=== PATIENT | male | born 1955 | race Native Hawaiian/Other Pacific Islander ===

== ENCOUNTER → 2017-04-08 | Emergency (ER) | payer SELFPAY | LOC: ED 09:23 | DX: Z53.21 Procedure and treatment not carried out due to patient leaving prior to being seen by health care provider (principal) ==

== ENCOUNTER 2018-06-25 18:12 | Inpatient (IN) | payer OTHER ==
[2018-06-25 20:36] LABS: Bilirubin,Urine NEG (Negative); Blood,Urine MOD (Negative); Color,Urine Yellow (Yellow); Protein,Urine <15 mg/dL mg/dL (Negative); Urobilinogen,Urine < 2.0 mg/dL (<2.0)
[2018-06-25] MEDS ORDERED: NORCO 5/325 PO ONE (22:37)
--- NOTE | 2018-06-25 22:46 | Emergency Department Report ---
HPI - General Chief Complaint: Abdominal Pain Time Seen by Provider: 06/25/18 22:15 - HPI HPI: Room 26 The patient is a 62-year-old male presenting with the chief complaint of left back and left lower quadrant pain. The patient states he has had pain in his left back for approximately one week. The patient also states he has pain in the left groin whenever he coughs for one week. Patient admits to nausea and vomiting but denies diarrhea or fever. Patient complains of shortness of breath only when he coughs for one week. The patient states his cough is nonproductive. The patient came to the ED 2 days ago for the above complaints and had a CT scan of the abdomen and pelvis performed but eloped prior to getting results. Family states the patient also appears off balance at times. Patient gives his pain a score of 6/10 Location: [See above] Duration: [See above] Quality: [See above] Severity: [See above] Modifying factors: [see above] Context: [see above] Mode of transportation: [not driving] ED Past Medical Hx - Past Medical History Hx Hypertension: Yes Hx Diabetes: Yes Additional medical history: high cholesterol - Surgical History Past Surgical History?: No - Family History Family history: no significant - Social History Smoking Status: Never Smoker Substance Use Type: None (denies illicit drug use), Alcohol (occasional) - Medications Home Medications: Home Medications Medication Instructions Recorded Confirmed Last Taken Type Lisinopril [Prinivil] 10 mg PO DAILY #30 tablet 07/08/18 Unknown Rx Simvastatin 40 mg PO QHS #30 tablet 07/08/18 Unknown Rx Warfarin Sodium [Jantoven] 7.5 mg PO 3XW #30 tablet 07/08/18 Unknown Rx Warfarin Sodium [Jantoven] 10 mg PO 4XW #30 tablet 07/08/18 Unknown Rx cefUROXime [Ceftin] 500 mg PO Q12H #14 tablet 07/08/18 Unknown Rx guaiFENesin/CODEINE [Robitussin AC] 5 ml PO Q6HR #1 oral.liqd 07/08/18 Unknown Rx metFORMIN [Glucophage] 1,000 mg PO BID #60 tablet 07/08/18 Unknown Rx oxyCODONE /ACETAMINOPHEN [Percocet 1 tab PO Q6H PRN #30 tablet 07/08/18 Unknown Rx 5/325 mg] ED Review of Systems ROS: Stated complaint: BACK PAIN/HIGH SUGAR STOMACH PAIN Other details as noted in HPI Constitutional: denies: fever Eyes: denies: eye pain ENT: denies: throat pain Respiratory: cough, shortness of breath Cardiovascular: denies: chest pain Endocrine: no symptoms reported Gastrointestinal: abdominal pain, nausea, vomiting. denies: diarrhea Genitourinary: denies: dysuria Musculoskeletal: back pain Neurological: denies: headache Physical Exam - Physical Exam Vital Signs: Vital Signs 06/25/18 19:15 Temperature 98.1 F Pulse Rate 99 H Respiratory 16 Rate Blood Pressure 148/86 O2 Sat by Pulse 97 Oximetry Physical Exam: GENERAL: The patient is well-developed well-nourished male lying on stretcher not appear to be in acute distress. [] HEENT: Normocephalic. Atraumatic. Extraocular motions are intact. Patient has moist mucous membranes. NECK: Supple. Trachea midline CHEST/LUNGS: Clear to auscultation. There is no respiratory distress noted. HEART/CARDIOVASCULAR: Regular. There is no tachycardia. There is no gallop rub or murmur. ABDOMEN: Abdomen is soft, nontender. Patient has normal bowel sounds. There is no abdominal distention. Slight pressure felt in the left inguinal canal with coughing consistent with potential early indirect inguinal hernia. No obvious hernia palpated SKIN: There is no rash. There is no edema. There is no diaphoresis. NEURO: The patient is awake, alert, and oriented. The patient is cooperative. The patient has normal speech MUSCULOSKELETAL: There is no evidence of acute injury. ED Course Vital Signs 06/25/18 19:15 Temperature 98.1 F Pulse Rate 99 H Respiratory 16 Rate Blood Pressure 148/86 O2 Sat by Pulse 97 Oximetry ED Medical Decision Making - Lab Data Result diagrams: 07/06/18 12:09 07/06/18 12:09 Laboratory Tests 06/25/18 06/25/18 06/25/18 19:23 19:45 22:35 WBC 8.5 RBC 5.63 H Hgb 13.8 Hct 41.7 MCV 74 L MCH 25 L MCHC 33 RDW 16.0 H Plt Count 212 Lymph % (Auto) 19.5 [place] % (Auto) 8.3 H Eos % (Auto) 1.2 Baso % (Auto) 0.7 Lymph # 1.7 [place] # 0.7 Eos # 0.1 Baso # 0.1 Seg Neutrophils % 70.3 H Seg Neutrophils # 6.0 D-Dimer Sodium Potassium Chloride Carbon Dioxide Anion Gap BUN Creatinine Estimated GFR BUN/Creatinine Ratio Glucose POC Glucose 113 H Calcium Total Bilirubin AST ALT Alkaline Phosphatase Total Protein Albumin Albumin/Globulin Ratio Lipase Urine Color Yellow Urine Turbidity Clear Urine pH 5.0 Ur Specific [place] 1.019 Urine Protein <15 mg/dl Urine Glucose (UA) Neg Urine Ketones Neg Urine Blood Mod Urine Nitrite Neg Urine Bilirubin Neg Urine Urobilinogen < 2.0 Ur Leukocyte Esterase Neg Urine WBC (Auto) 1.0 Urine RBC (Auto) 2.0 U Epithel Cells (Auto) < 1.0 06/25/18 06/25/18 22:35 22:35 WBC RBC Hgb Hct MCV MCH MCHC RDW Plt Count Lymph % (Auto) [place] % (Auto) Eos % (Auto) Baso % (Auto) Lymph # [place] # Eos # Baso # Seg Neutrophils % Seg Neutrophils # D-Dimer 370.07 H Sodium 141 Potassium 4.0 Chloride 97.9 L Carbon Dioxide 29 Anion Gap 18 BUN 14 Creatinine 1.0 Estimated GFR > 60 BUN/Creatinine Ratio 14 Glucose 149 H POC Glucose Calcium 9.3 Total Bilirubin 0.40 AST 15 ALT 15 Alkaline Phosphatase 81 Total Protein 7.4 Albumin 4.5 Albumin/Globulin Ratio 1.6 Lipase 150 H Urine Color Urine Turbidity Urine pH Ur Specific [place] Urine Protein Urine Glucose (UA) Urine Ketones Urine Blood Urine Nitrite Urine Bilirubin Urine Urobilinogen Ur Leukocyte Esterase Urine WBC (Auto) Urine RBC (Auto) U Epithel Cells (Auto) - Radiology Data Radiology results: report reviewed (CT chest), image reviewed (CT chest) [address] [address] Cat Scan Report Signed Patient: SARA MEDRANO MR#: [id number] : 1955 Acct:[id number] Age/Sex: 62 / M ADM Date: 06/25/18 Loc: ED Attending Dr: Ordering Physician: TINA FLOYD MD Date of Service: 06/26/18 Procedure(s): CT angio chest Accession Number(s): [id number] cc: TINA FLOYD MD FINAL REPORT EXAM: CT ANGIO CHEST HISTORY: shortness of breath, elevated d-dimer TECHNIQUE: High- resolution helical axial images were obtained of the chest during intravenous administration of iodinated contrast. Images are reconstructed in the sagittal and coronal planes. 100 cc of Omnipaque 350 were used for IV contrast agent PRIORS: 04/20/2012 FINDINGS: There is no evidence of pulmonary embolism. The heart and thoracic aorta appear normal. Previous CT showed a right suprahilar irregular consolidation. Now there is an even larger area of masslike consolidation in the right suprahilar right upper lobe with surrounding ground- glass attenuation. It likely represents a mass based on associated occlusion of a pulmonary arterial branch to the right upper lobe and two pulmonary a arteries to the right middle lobe at their origins. The mass is irregular in shape and measures 9.2 cm AP by 5.9 cm transverse. It abuts the SVC without invasion. There is a new pretracheal lymph node that measures 9 mm in short axis dimension. Images through the upper abdomen show new bilateral adrenal masses measuring 1.8 cm on the right and 3.0 cm on the left. The bones are unremarkable. IMPRESSION: 1. No evidence of pulmonary embolism. 2. Right suprahilar mass occludes pulmonary arterial branches to the right upper lobe and right middle lobe and is highly suspicious for malignancy. 3. 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 I gave a verbal report by phone to Dr. Floyd at 1:32 a.m. eastern daylight time. Transcribed By: ANGEL Dictated By: MARY COLE MD Electronically Authenticated By: MARY COLE MD Signed Date/Time: 06/26/18137 DD/ 7 TD/TT: 137 - Medical Decision Making Due to technical difficulties I'm unable to enter my final diagnoses in the allotted text field. Final diagnoses are below: Right lung mass Adrenal masses Shortness of breath Left groin pain - Differential Diagnosis pyelonephritis, PE, inguinal hernia Critical care attestation.: If time is entered above; I have spent that time in minutes in the direct care of this critically ill patient, excluding procedure time. ED Disposition Clinical Impression: Lung mass, Left groin pain, Shortness of breath, Adrenal mass Disposition: OP ADMIT IP TO THIS HOSP Is pt being admited?: Yes Does the pt Need Aspirin: No Condition: Fair Time of Disposition: 01:42 (hospitalist patient (Dr. Christianne Mata))
[2018-06-25 22:55] LABS: Basophils # (Auto) 0.1 K/mm3 (0.0-0.1); Basophils % (Auto) 0.7 % (0.0-1.8); Eosinophils # (Auto) 0.1 K/mm3 (0.0-0.4); Eosinophils % (Auto) 1.2 % (0.0-4.3); Hematocrit 41.7 % (35.5-45.6); Hemoglobin 13.8 gm/dl (11.8-15.2); Lymphocytes # (Auto) 1.7 K/mm3 (1.2-5.4); Lymphocytes % (Auto) 19.5 % (13.4-35.0); Mean Corpuscular HGB Conc 33 % (32-34); Mean Corpuscular Volume 74 fl (84-94); Monocytes # (Auto) 0.7 K/mm3 (0.0-0.8); Monocytes % (Auto) 8.3 % (0.0-7.3); Platelet Count 212 K/mm3 (140-440); Red Blood Count 5.63 M/mm3 (3.65-5.03)
[2018-06-25 23:01] LABS: Mean Corpuscular Hemoglobin 25 pg (28-32)
[2018-06-25 23:13] LABS: Alanine Aminotransferase 15 units/L (7-56); Albumin 4.5 g/dL (3.9-5)
[2018-06-26 00:01] LABS: BUN/Creatinine Ratio 14; Blood Urea Nitrogen 14 mg/dL (9-20); Calcium 9.3 mg/dL (8.4-10.2); Hemolysis Index 0; Lipase 150 units/L (13-60)
--- NOTE | 2018-06-26 01:39 | Cat Scan Report ---
FINAL REPORT EXAM: CT ANGIO CHEST HISTORY: shortness of breath, elevated d-dimer TECHNIQUE: High-resolution helical axial images were obtained of the chest during intravenous administration of iodinated contrast. Images are reconstructed in the sagittal and coronal planes. 100 cc of Omnipaque 350 were used for IV contrast agent PRIORS: 04/20/2012 FINDINGS: There is no evidence of pulmonary embolism. The heart and thoracic aorta appear normal. Previous CT showed a right suprahilar irregular consolidation. Now there is an even larger area of masslike consolidation in the right suprahilar right upper lobe with surrounding ground-glass attenuation. It likely represents a mass based on associated occlusion of a pulmonary arterial branch to the right upper lobe and two pulmonary a arteries to the right middle lobe at their origins. The mass is irregular in shape and measures 9.2 cm AP by 5.9 cm transverse. It abuts the SVC without invasion. There is a new pretracheal lymph node that measures 9 mm in short axis dimension. Images through the upper abdomen show new bilateral adrenal masses measuring 1.8 cm on the right and 3.0 cm on the left. The bones are unremarkable. IMPRESSION: 1. No evidence of pulmonary embolism. 2. Right suprahilar mass occludes pulmonary arterial branches to the right upper lobe and right middle lobe and is highly suspicious for malignancy. 3. 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 I gave a verbal report by phone to Dr. Canela at 1:32 a.m. eastern daylight time.
[2018-06-26] MEDS ORDERED: ZOFRAN IV PRN (02:55)
[2018-06-26] MEDS ORDERED: PERCOCET 5/325 PO PRN (02:55)
[2018-06-26] MEDS ORDERED: SODIUM CHLORIDE FLUSH SYRINGE 10 ML IV PRN (02:55)
[2018-06-26] MEDS ORDERED: TYLENOL PO PRN (02:55)
[2018-06-26] MEDS ORDERED: D50W (25GM) Syringe IV PRN (02:55)
--- NOTE | 2018-06-26 02:59 | History and Physical Report ---
History of Present Illness Date of examination: 06/26/18 History of present illness: 62-year-old man history of diabetes, to emergency room with complaints of abdominal pain located in the left lower quadrant which she described as a pulling sensation that started 2 weeks ago. The pain has been intermittent in nature, unable to fill on the lateral, radiating to the back, can identify exacerbating or relieving factors. He admits to nausea and vomiting, shortness of breath, shortness of breath worse with coughing Review of systems Constitutional: no weight loss, chills, fever Ears, eyes, nose, mouth and throat: no nasal congestion, no nasal discharge, no sinus pressure, no vision change, no red eye. Neck: No neck pain or rigidity. Cardiovascular: no chest pain, palpitations Respiratory: no cough, shortness of breath Gastrointestinal: no hematochezia Genitourinary : no frequency , no hematuria Musculoskeletal: no joint swelling or muscle ache Integumentary: no rash, no pruritis Neurological: no parathesias, no numbness, no focal weakness Endocrine: no cold or heat intolerance, no polyuria or polydipsia Hematologic/Lymphatic: no easy bruising, no easy bleeding, no gland swelling Allergic/Immunologic: no urticaria, no angioedema. PAST MEDICAL HISTORY: Diabetes PAST SURGICAL HISTORY: None SOCIAL HISTORY: No alcohol, no drugs, tobacco FAMILY HISTORY: Hypertension Medications and Allergies Allergies Allergy/AdvReac Type Severity Reaction Status Date / Time No Known Allergies Allergy Verified 06/23/18 10:10 Home Medications Medication Instructions Recorded Confirmed Last Taken Type Lisinopril [Prinivil] 10 mg PO DAILY 06/26/18 06/26/18 Unknown History Simvastatin 40 mg PO QHS 06/26/18 06/26/18 Unknown History Warfarin Sodium [Jantoven] 7.5 mg PO 3XW 06/26/18 06/26/18 Unknown History Warfarin Sodium [Jantoven] 10 mg PO 4XW 06/26/18 06/26/18 Unknown History metFORMIN [Glucophage] 1,000 mg PO BID 06/26/18 06/26/18 Unknown History Exam - Physical Exam Narrative exam: Gen. appearance: Patient lying in bed, no apparent distress HEENT: Normocephalic, atraumatic, pupils equally round and reactive to light, extraocular movement intact, and no sclericterus,. No JVD or thyromegaly or nodule,neck supple, no carotid bruit ,mucous membranes moist, no exudate or erythema Heart: S1, S2, regular rate and rhythm Lungs: Clear bilaterally, breathing comfortable Abdomen: Positive bowel sounds, non-tender, nondistended, no organomegaly Extremity:no edema cyanosis, clubbing Skin: no rash, dry, warm Neuro: Oriented 3, cranial nerves II-12 intact, speech is fluent, motor and sensory intact - Constitutional Vitals: Temp Pulse Resp BP Pulse Ox 98.4 F 91 H 20 118/64 98 06/25/18 23:00 06/25/18 23:00 06/26/18 00:23 06/25/18 23:00 06/26/18 00:23 Results - Labs CBC & Chem 7: 07/03/18 05:56 07/03/18 05:56 Labs: Abnormal lab results 06/25/18 06/25/18 06/25/18 Range/Units 19:23 22:35 22:35 RBC 5.63 H (3.65-5.03) M/mm3 MCV 74 L (84-94) fl MCH 25 L (28-32) pg RDW 16.0 H (13.2-15.2) % [place] % (Auto) 8.3 H (0.0-7.3) % Seg Neutrophils % 70.3 H (40.0-70.0) % D-Dimer (0-234) ng/mlDDU Chloride 97.9 L (98-107) mmol/L Glucose 149 H (75-100) mg/dL POC Glucose 113 H (70-105) Lipase 150 H (13-60) units/L 06/25/18 Range/Units 22:35 RBC (3.65-5.03) M/mm3 MCV (84-94) fl MCH (28-32) pg RDW (13.2-15.2) % [place] % (Auto) (0.0-7.3) % Seg Neutrophils % (40.0-70.0) % D-Dimer 370.07 H (0-234) ng/mlDDU Chloride (98-107) mmol/L Glucose (75-100) mg/dL POC Glucose (70-105) Lipase (13-60) units/L - Imaging and Cardiology CT scan - chest: report reviewed Assessment and Plan Assessment Right hilar mass with mets Abdominal pain Diabetes Plan Admit to medicine Consult oncology, pain medication Check CAT scan of the abdomen Check finger sticks, initiate insulin sliding scale DVT prophylaxis
--- NOTE | 2018-06-26 03:48 | Cat Scan Report ---
FINAL REPORT PROCEDURE: CT ABDOMEN PELVIS WO CON TECHNIQUE: Computerized axial tomography of the abdomen and pelvis was performed without intravenous contrast. This study is performed without intravascular contrast material and its sensitivity for abdominal and pelvic pathology, including neoplasms, inflammation, abscess, free fluid, thrombosis, arterial dissection and infarction, is reduced compared with a contrast enhanced study. HISTORY: Abdominal pain epigastric COMPARISON: 06/23/2018 FINDINGS: Visualized lower thorax: No significant abnormality. Liver: Normal size and attenuation. Spleen: Normal size and attenuation. Gallbladder and biliary system: Normal. Pancreas: Normal. Adrenals: There is a 3 centimeter left adrenal mass similar to the previous examination.. There is a 16 millimeter right adrenal mass unchanged from prior study. Kidneys: There is no hydronephrosis. There are no visible stones.. GI tract: There is no bowel obstruction, colitis or enteritis. There is moderate stool in the colon. The appendix is normal.. Lymph nodes and mesentery: There is mesenteric induration similar to the prior study.. Vasculature: Normal. Bladder: Normal. Reproductive organs: Normal. Peritoneum: There is no ascites or free air, abscess or adenopathy.. Musculoskeletal structures: There is lytic lesion in the L4 vertebral body with focal defect in the superior endplate suggesting pathological fracture. Metastatic lesion versus myeloma suspected. This is unchanged from the prior study.. Other: None. IMPRESSION: There has been no acute change since the prior study..
[2018-06-26 04:30] LABS: Basophils # (Auto) 0.1 K/mm3 (0.0-0.1); Eosinophils # (Auto) 0.1 K/mm3 (0.0-0.4); Eosinophils % (Auto) 1.8 % (0.0-4.3); Hematocrit 38.8 % (35.5-45.6); Hemoglobin 12.9 gm/dl (11.8-15.2); Lymphocytes # (Auto) 2.1 K/mm3 (1.2-5.4); Mean Corpuscular HGB Conc 33 % (32-34); Mean Corpuscular Volume 74 fl (84-94); Monocytes # (Auto) 0.7 K/mm3 (0.0-0.8); Monocytes % (Auto) 8.5 % (0.0-7.3); Platelet Count 190 K/mm3 (140-440); Red Blood Count 5.25 M/mm3 (3.65-5.03); Red Cell Distribution Width 15.9 % (13.2-15.2)
[2018-06-26 04:36] LABS: BUN/Creatinine Ratio 14; Blood Urea Nitrogen 13 mg/dL (9-20); Calcium 8.8 mg/dL (8.4-10.2); Hemolysis Index 2
[2018-06-26 04:37] LABS: Mean Corpuscular Hemoglobin 25 pg (28-32)
--- NOTE | 2018-06-26 08:48 | Hem/Onc Consultation ---
History of Present Illness - Reason for Consult Consult date: 06/26/18 lung and adrenal lesions Requesting physician: DEMETRIO LOONEY - History of Present Illness admitted for 2 weeks h/o left LQ and left flank discomfort pain is better now 62-year-old male presenting with the chief complaint of left back and left lower quadrant pain. The patient states he has had pain in his left back for approximately one week. The patient also states he has pain in the left groin whenever he coughs for one week. h/o nausea in past h/o dry cough The patient came to the ED a few days ago for the above complaints and had a CT scan of the abdomen and pelvis performed but eloped prior to getting results. no chest pain no leg pain no vomiting no headache or fever Past History Past Medical History: diabetes, hypertension, hyperlipidemia Past Surgical History: No surgical history Social history: denies: smoking Family history: no significant family history Medications and Allergies Allergies Allergy/AdvReac Type Severity Reaction Status Date / Time No Known Allergies Allergy Verified 06/23/18 10:10 Home Medications Medication Instructions Recorded Confirmed Last Taken Type Lisinopril [Prinivil] 10 mg PO DAILY 06/26/18 06/26/18 Unknown History Simvastatin 40 mg PO QHS 06/26/18 06/26/18 Unknown History Warfarin Sodium [Jantoven] 7.5 mg PO 3XW 06/26/18 06/26/18 Unknown History Warfarin Sodium [Jantoven] 10 mg PO 4XW 06/26/18 06/26/18 Unknown History metFORMIN [Glucophage] 1,000 mg PO BID 06/26/18 06/26/18 Unknown History Active Meds: Active Medications Acetaminophen (Tylenol) 650 mg PO Q4H PRN PRN Reason: Pain MILD(1-3)/Fever >100.5/HERNANDEZ Dextrose (D50w (25gm) Syringe) 50 ml IV PRN PRN PRN Reason: Hypoglycemia Enoxaparin Sodium (Lovenox) 40 mg SUB-Q QDAY TANA Ondansetron HCl (Zofran) 4 mg IV Q8H PRN PRN Reason: Nausea And Vomiting Oxycodone/Acetaminophen (Percocet 5/325) 1 tab PO Q6H PRN PRN Reason: Pain, Moderate (4-6) Pneumococcal Polyvalent Vaccine (Pneumovax 23) 0.5 ml IM .ONCE ONE Stop: 06/27/18 12:01 Sodium Chloride (Sodium Chloride Flush Syringe 10 Ml) 10 ml IV BID TANA Sodium Chloride (Sodium Chloride Flush Syringe 10 Ml) 10 ml IV PRN PRN PRN Reason: LINE FLUSH Review of Systems Constitutional: weight gain, no fever, no chills Ears, nose, mouth and throat: no epistaxis Cardiovascular: no chest pain Respiratory: cough (non productive) Gastrointestinal: abdominal pain, nausea, no diarrhea Genitourinary Male: flank pain, no hematuria Rectal: no bleeding Integumentary: no rash Neurological: no seizures Hematologic/Lymphatic: no easy bruising Exam - Constitutional Vitals: Last Vital Signs Temp 98.4 F 06/26/18 06:24 Pulse 69 06/26/18 06:24 Resp 20 06/26/18 06:24 BP 141/83 06/26/18 06:24 Pulse Ox 98 06/26/18 06:24 Pain Intensity (0-10): denies any pain General appearance: no acute distress Performance status: 0-fully active - EENT Eyes: PERRL ENT: clear oral mucosa Lymph node exam: negative cervical, negative supraclavicular - Neck Neck: supple - Respiratory Respiratory effort: Positive: normal Respiratory: negative: CTA - Cardiovascular Heart Sounds: Present: S1 & S2 Extremities: No edema - Gastrointestinal General gastrointestinal: Present: soft Rectal Exam: deferred - Genitourinary Male genitourinary: Present: deferred - Integumentary Integumentary: warm - Musculoskeletal Musculoskeletal: strength equal bilaterally - Neurologic Neurologic: moves all extremities Results - Labs lab Results: Laboratory Results - last 24 hr 06/25/18 06/25/18 06/25/18 19:23 19:45 22:35 WBC 8.5 RBC 5.63 H Hgb 13.8 Hct 41.7 MCV 74 L MCH 25 L MCHC 33 RDW 16.0 H Plt Count 212 Lymph % (Auto) 19.5 [place] % (Auto) 8.3 H Eos % (Auto) 1.2 Baso % (Auto) 0.7 Lymph # 1.7 [place] # 0.7 Eos # 0.1 Baso # 0.1 Seg Neutrophils % 70.3 H Seg Neutrophils # 6.0 D-Dimer Sodium Potassium Chloride Carbon Dioxide Anion Gap BUN Creatinine Estimated GFR BUN/Creatinine Ratio Glucose POC Glucose 113 H Calcium Total Bilirubin AST ALT Alkaline Phosphatase Total Protein Albumin Albumin/Globulin Ratio Lipase Urine Color Yellow Urine Turbidity Clear Urine pH 5.0 Ur Specific [place] 1.019 Urine Protein <15 mg/dl Urine Glucose (UA) Neg Urine Ketones Neg Urine Blood Mod Urine Nitrite Neg Urine Bilirubin Neg Urine Urobilinogen < 2.0 Ur Leukocyte Esterase Neg Urine WBC (Auto) 1.0 Urine RBC (Auto) 2.0 U Epithel Cells (Auto) < 1.0 06/25/18 06/25/18 06/26/18 22:35 22:35 04:10 WBC 8.1 RBC 5.25 H Hgb 12.9 Hct 38.8 MCV 74 L MCH 25 L MCHC 33 RDW 15.9 H Plt Count 190 Lymph % (Auto) 26.0 [place] % (Auto) 8.5 H Eos % (Auto) 1.8 Baso % (Auto) 1.0 Lymph # 2.1 [place] # 0.7 Eos # 0.1 Baso # 0.1 Seg Neutrophils % 62.7 Seg Neutrophils # 5.1 D-Dimer 370.07 H Sodium 141 Potassium 4.0 Chloride 97.9 L Carbon Dioxide 29 Anion Gap 18 BUN 14 Creatinine 1.0 Estimated GFR > 60 BUN/Creatinine Ratio 14 Glucose 149 H POC Glucose Calcium 9.3 Total Bilirubin 0.40 AST 15 ALT 15 Alkaline Phosphatase 81 Total Protein 7.4 Albumin 4.5 Albumin/Globulin Ratio 1.6 Lipase 150 H Urine Color Urine Turbidity Urine pH Ur Specific [place] Urine Protein Urine Glucose (UA) Urine Ketones Urine Blood Urine Nitrite Urine Bilirubin Urine Urobilinogen Ur Leukocyte Esterase Urine WBC (Auto) Urine RBC (Auto) U Epithel Cells (Auto) 06/26/18 04:10 WBC RBC Hgb Hct MCV MCH MCHC RDW Plt Count Lymph % (Auto) [place] % (Auto) Eos % (Auto) Baso % (Auto) Lymph # [place] # Eos # Baso # Seg Neutrophils % Seg Neutrophils # D-Dimer Sodium 137 Potassium 3.9 Chloride 99.1 Carbon Dioxide 26 Anion Gap 16 BUN 13 Creatinine 0.9 Estimated GFR > 60 BUN/Creatinine Ratio 14 Glucose 143 H POC Glucose Calcium 8.8 Total Bilirubin AST ALT Alkaline Phosphatase Total Protein Albumin Albumin/Globulin Ratio Lipase Urine Color Urine Turbidity Urine pH Ur Specific [place] Urine Protein Urine Glucose (UA) Urine Ketones Urine Blood Urine Nitrite Urine Bilirubin Urine Urobilinogen Ur Leukocyte Esterase Urine WBC (Auto) Urine RBC (Auto) U Epithel Cells (Auto) Assessment and Plan # rt suprahilar - large mass # b/l adrenal mass d/w pt that this may be neoplastic - look into bx admitted with left abdo/flank pain #HTN. - on meds #DM - on meds
[2018-06-26] MEDS: LOVENOX SUB-Q SCH (09:38)
[2018-06-26] MEDS: SODIUM CHLORIDE FLUSH SYRINGE 10 ML IV SCH ×2 (09:40→21:29)
--- NOTE | 2018-06-26 10:32 | Consultation ---
History of Present Illness - Reason for Consult Consult date: 06/26/18 pulmonary mass, adrenal masses - History of Present Illness Patient with a history of hilar mass with enlargement as well as bilateral adrenal masses suspicious for metastatic lung cancer. The patient initially presented with abdominal pain which has somewhat resolved. Past History Social history: no significant social history Medications and Allergies Allergies Allergy/AdvReac Type Severity Reaction Status Date / Time No Known Allergies Allergy Verified 06/23/18 10:10 Home Medications Medication Instructions Recorded Confirmed Last Taken Type Lisinopril [Prinivil] 10 mg PO DAILY 06/26/18 06/26/18 Unknown History Simvastatin 40 mg PO QHS 06/26/18 06/26/18 Unknown History Warfarin Sodium [Jantoven] 7.5 mg PO 3XW 06/26/18 06/26/18 Unknown History Warfarin Sodium [Jantoven] 10 mg PO 4XW 06/26/18 06/26/18 Unknown History metFORMIN [Glucophage] 1,000 mg PO BID 06/26/18 06/26/18 Unknown History Active Meds: Active Medications Acetaminophen (Tylenol) 650 mg PO Q4H PRN PRN Reason: Pain MILD(1-3)/Fever >100.5/HERNANDEZ Dextrose (D50w (25gm) Syringe) 50 ml IV PRN PRN PRN Reason: Hypoglycemia Enoxaparin Sodium (Lovenox) 40 mg SUB-Q QDAY [facility] Last Admin: 06/26/18 09:38 Dose: 40 mg Ondansetron HCl (Zofran) 4 mg IV Q8H PRN PRN Reason: Nausea And Vomiting Oxycodone/Acetaminophen (Percocet 5/325) 1 tab PO Q6H PRN PRN Reason: Pain, Moderate (4-6) Pneumococcal Polyvalent Vaccine (Pneumovax 23) 0.5 ml IM .ONCE ONE Stop: 06/27/18 12:01 Sodium Chloride (Sodium Chloride Flush Syringe 10 Ml) 10 ml IV BID [facility] Last Admin: 06/26/18 09:40 Dose: 10 ml Sodium Chloride (Sodium Chloride Flush Syringe 10 Ml) 10 ml IV PRN PRN PRN Reason: LINE FLUSH Review of Systems All systems: negative Exam - Constitutional Vitals: Temp Pulse Resp BP Pulse Ox 98.4 F 69 20 141/83 98 06/26/18 06:24 06/26/18 06:24 06/26/18 06:24 06/26/18 06:24 06/26/18 06:24 General appearance: Present: no acute distress - EENT Eyes: Present: PERRL ENT: hearing intact - Neck Neck: Present: supple, normal ROM - Respiratory Respiratory effort: normal - Extremities Extremities: no ischemia - Abdominal General gastrointestinal: Present: deferred Male genitourinary: Present: deferred - Rectal Rectal Exam: deferred - Psychiatric Psychiatric: appropriate mood/affect, cooperative - Neurologic Neurologic: no focal deficits Results - Labs CBC & Chem 7: 06/26/18 04:10 06/26/18 04:10 Labs: Abnormal lab results 06/25/18 06/25/18 06/25/18 Range/Units 19:23 22:35 22:35 RBC 5.63 H (3.65-5.03) M/mm3 MCV 74 L (84-94) fl MCH 25 L (28-32) pg RDW 16.0 H (13.2-15.2) % [place] % (Auto) 8.3 H (0.0-7.3) % Seg Neutrophils % 70.3 H (40.0-70.0) % D-Dimer (0-234) ng/mlDDU Chloride 97.9 L (98-107) mmol/L Glucose 149 H (75-100) mg/dL POC Glucose 113 H (70-105) Lipase 150 H (13-60) units/L 06/25/18 06/26/18 06/26/18 Range/Units 22:35 04:10 04:10 RBC 5.25 H (3.65-5.03) M/mm3 MCV 74 L (84-94) fl MCH 25 L (28-32) pg RDW 15.9 H (13.2-15.2) % [place] % (Auto) 8.5 H (0.0-7.3) % Seg Neutrophils % (40.0-70.0) % D-Dimer 370.07 H (0-234) ng/mlDDU Chloride (98-107) mmol/L Glucose 143 H (75-100) mg/dL POC Glucose (70-105) Lipase (13-60) units/L - Imaging and Cardiology CT scan - abdomen: report reviewed, image reviewed CT scan - chest: report reviewed, image reviewed Assessment and Plan Given the fact that the patient has both hilar and adrenal masses, we'll plan for biopsy of his adrenal mass with CT guidance tomorrow. If this is nondiagnostic, endobronchial biopsy of his hilar mass may be considered.
--- NOTE | 2018-06-26 14:52 | Event Note ---
Date: 06/26/18 Patient seen and examined, clinically stable continue plan as outlined in H/P
[2018-06-26] MEDS: HumaLOG SUB-Q SCH (21:30)
[2018-06-27] MEDS: HumaLOG SUB-Q SCH ×4 (08:00→22:31)
[2018-06-27] MEDS: LOVENOX SUB-Q SCH (09:23)
[2018-06-27] MEDS: SODIUM CHLORIDE FLUSH SYRINGE 10 ML IV SCH ×2 (10:27→22:31)
[2018-06-27 10:37] LABS: INR 1.62 (0.87-1.13)
[2018-06-27 10:38] LABS: Partial Thromboplastin Time 25.9 Sec. (24.2-36.6)
[2018-06-27] MEDS ORDERED: PNEUMOVAX 23 IM ONE (12:00)
--- NOTE | 2018-06-27 12:57 | Progress Note ---
Assessment and Plan Assessment and plan: Right suprahilar mass. For biopsy IR consulted Oncology following Bilateral Adrenal masses. For CT guided biopsy, Diabetes mellitus type 2. Fingerstick q ac and hs Full code status. History Interval history: Less abdominal pain Hospitalist Physical - Physical exam Narrative exam: GEN:Not in acute distress, lying in bed HEENT: Normocephalic, atraumatic, Neck: supple, No JVD Lungs: Clear to auscultaion bilaterally, no crackles Heart:S1 and S2 reg, no murmurs, rubs or gallop Abd:soft, non-tender, non-distended, Normal bowel sounds Ext: No edema, clubbing or cyanosis Neuro: Awake, alert, oriented X 3, Moves all extremities - Constitutional Vitals: Temp Pulse Resp BP Pulse Ox 98.0 F 82 18 132/74 97 06/27/18 05:13 06/27/18 05:13 06/27/18 05:13 06/27/18 05:13 06/27/18 05:13 General appearance: Present: no acute distress Results - Labs CBC & Chem 7: 06/26/18 04:10 06/26/18 04:10 Labs: Laboratory Last Values WBC 8.1 K/mm3 (4.5-11.0) 06/26/18 04:10 RBC 5.25 M/mm3 (3.65-5.03) H 06/26/18 04:10 Hgb 12.9 gm/dl (11.8-15.2) 06/26/18 04:10 Hct 38.8 % (35.5-45.6) 06/26/18 04:10 MCV 74 fl (84-94) L 06/26/18 04:10 MCH 25 pg (28-32) L 06/26/18 04:10 MCHC 33 % (32-34) 06/26/18 04:10 RDW 15.9 % (13.2-15.2) H 06/26/18 04:10 Plt Count 190 K/mm3 (140-440) 06/26/18 04:10 Lymph % (Auto) 26.0 % (13.4-35.0) 06/26/18 04:10 [place] % (Auto) 8.5 % (0.0-7.3) H 06/26/18 04:10 Eos % (Auto) 1.8 % (0.0-4.3) 06/26/18 04:10 Baso % (Auto) 1.0 % (0.0-1.8) 06/26/18 04:10 Lymph # 2.1 K/mm3 (1.2-5.4) 06/26/18 04:10 [place] # 0.7 K/mm3 (0.0-0.8) 06/26/18 04:10 Eos # 0.1 K/mm3 (0.0-0.4) 06/26/18 04:10 Baso # 0.1 K/mm3 (0.0-0.1) 06/26/18 04:10 Seg Neutrophils % 62.7 % (40.0-70.0) 06/26/18 04:10 Seg Neutrophils # 5.1 K/mm3 (1.8-7.7) 06/26/18 04:10 PT 20.2 Sec. (12.2-14.9) H 06/27/18 10:04 INR 1.62 (0.87-1.13) H 06/27/18 10:04 APTT 25.9 Sec. (24.2-36.6) 06/27/18 10:04 D-Dimer 370.07 ng/mlDDU (0-234) H 06/25/18 22:35 Sodium 137 mmol/L (137-145) 06/26/18 04:10 Potassium 3.9 mmol/L (3.6-5.0) 06/26/18 04:10 Chloride 99.1 mmol/L (98-107) 06/26/18 04:10 Carbon Dioxide 26 mmol/L (22-30) 06/26/18 04:10 Anion Gap 16 mmol/L 06/26/18 04:10 BUN 13 mg/dL (9-20) 06/26/18 04:10 Creatinine 0.9 mg/dL (0.8-1.5) 06/26/18 04:10 Estimated GFR > 60 ml/min 06/26/18 04:10 BUN/Creatinine Ratio 14 % 06/26/18 04:10 Glucose 143 mg/dL (75-100) H 06/26/18 04:10 POC Glucose 114 (70-105) H 06/27/18 11:57 Calcium 8.8 mg/dL (8.4-10.2) 06/26/18 04:10 Total Bilirubin 0.40 mg/dL (0.1-1.2) 06/25/18 22:35 AST 15 units/L (5-40) 06/25/18 22:35 ALT 15 units/L (7-56) 06/25/18 22:35 Alkaline Phosphatase 81 units/L (35-129) 06/25/18 22:35 Total Protein 7.4 g/dL (6.3-8.2) 06/25/18 22:35 Albumin 4.5 g/dL (3.9-5) 06/25/18 22:35 Albumin/Globulin Ratio 1.6 % 06/25/18 22:35 Lipase 150 units/L (13-60) H 06/25/18 22:35 Urine Color Yellow (Yellow) 06/25/18 19:45 Urine Turbidity Clear (Clear) 06/25/18 19:45 Urine pH 5.0 (5.0-7.0) 06/25/18 19:45 Ur Specific [place] 1.019 (1.003-1.030) 06/25/18 19:45 Urine Protein <15 mg/dl mg/dL (Negative) 06/25/18 19:45 Urine Glucose (UA) Neg mg/dL (Negative) 06/25/18 19:45 Urine Ketones Neg mg/dL (Negative) 06/25/18 19:45 Urine Blood Mod (Negative) 06/25/18 19:45 Urine Nitrite Neg (Negative) 06/25/18 19:45 Urine Bilirubin Neg (Negative) 06/25/18 19:45 Urine Urobilinogen < 2.0 mg/dL (<2.0) 06/25/18 19:45 Ur Leukocyte Esterase Neg (Negative) 06/25/18 19:45 Urine WBC (Auto) 1.0 /HPF (0.0-6.0) 06/25/18 19:45 Urine RBC (Auto) 2.0 /HPF (0.0-6.0) 06/25/18 19:45 U Epithel Cells (Auto) < 1.0 /HPF (0-13.0) 06/25/18 19:45
--- NOTE | 2018-06-27 13:15 | Hem/Onc Progress Note ---
Assessment and Plan # rt suprahilar - large mass # b/l adrenal mass d/w pt that this may be neoplastic admitted with left abdo/flank pain #HTN. - on meds #DM - on meds Lung biopsy - 06/27 0 d/w reg clinical suspicion - Patient Problems (1) Lung mass Onset Date: ~06/26/18 Current Visit: Yes Status: Acute Subjective Date of service: 06/27/18 Principal diagnosis: lung and adrenal mass Interval history: due lung bx today feeling OK no abdo pain no vomiting Objective - Constitutional Vitals: Last Vital Signs Temp 98.0 F 06/27/18 05:13 Pulse 82 06/27/18 05:13 Resp 18 06/27/18 05:13 BP 132/74 06/27/18 05:13 Pulse Ox 97 06/27/18 05:13 Pain Intensity (0-10): denies any pain General appearance: no acute distress Performance status: 0-fully active - EENT Eyes: PERRL ENT: clear oral mucosa Lymph node exam: negative cervical, negative supraclavicular - Neck Neck: supple - Respiratory Respiratory effort: Positive: normal Respiratory: negative: CTA - Cardiovascular Heart Sounds: Present: S1 & S2 Extremities: No edema - Gastrointestinal General gastrointestinal: Present: soft, non-tender Rectal Exam: deferred - Genitourinary Male genitourinary: Present: deferred - Musculoskeletal Musculoskeletal: strength equal bilaterally - Neurologic Neurologic: moves all extremities - Psychiatric Psychiatric: appropriate mood/affect - Labs Lab Results: Laboratory Results - last 24 hr 06/26/18 06/26/18 06/27/18 16:40 20:58 07:55 PT INR APTT POC Glucose 188 H 120 H 120 H 06/27/18 06/27/18 10:04 11:57 PT 20.2 H INR 1.62 H APTT 25.9 POC Glucose 114 H
--- NOTE | 2018-06-27 13:45 | Event Note ---
Date: 06/27/18 Will be unable to perform biopsy today. There are too many emergent case is being done in the CT scanner today. We'll plan on reattempting tomorrow. This procedure can be performed as an outpatient if the patient is ready for discharge.
[2018-06-28] MEDS: HumaLOG SUB-Q SCH ×4 (08:30→22:49)
--- NOTE | 2018-06-28 09:09 | Progress Note ---
Assessment and Plan Assessment and plan: Right suprahilar mass. For biopsy IR consulted Oncology following Bilateral Adrenal masses. For CT guided biopsy today, Diabetes mellitus type 2. Fingerstick q ac and hs Full code status. History of DVT left leg. Coumadin recheck INR today History Interval history: Less abdominal pain, No chest pain currently Hospitalist Physical - Physical exam Narrative exam: GEN:Not in acute distress, lying in bed HEENT: Normocephalic, atraumatic, Neck: supple, No JVD Lungs: Clear to auscultation bilaterally, no crackles Heart:S1 and S2 reg, no murmurs, rubs or gallop Abd:soft, non-tender, non-distended, Normal bowel sounds Ext: No edema, clubbing or cyanosis Neuro: Awake, alert, oriented X 3, Moves all extremities - Constitutional Vitals: Temp Pulse Resp BP Pulse Ox 98.2 F 71 20 133/69 98 06/28/18 05:17 06/28/18 05:17 06/28/18 05:17 06/28/18 05:17 06/28/18 05:17 General appearance: Present: no acute distress Results - Labs CBC & Chem 7: 06/26/18 04:10 06/26/18 04:10 Labs: Laboratory Last Values WBC 8.1 K/mm3 (4.5-11.0) 06/26/18 04:10 RBC 5.25 M/mm3 (3.65-5.03) H 06/26/18 04:10 Hgb 12.9 gm/dl (11.8-15.2) 06/26/18 04:10 Hct 38.8 % (35.5-45.6) 06/26/18 04:10 MCV 74 fl (84-94) L 06/26/18 04:10 MCH 25 pg (28-32) L 06/26/18 04:10 MCHC 33 % (32-34) 06/26/18 04:10 RDW 15.9 % (13.2-15.2) H 06/26/18 04:10 Plt Count 190 K/mm3 (140-440) 06/26/18 04:10 Lymph % (Auto) 26.0 % (13.4-35.0) 06/26/18 04:10 [place] % (Auto) 8.5 % (0.0-7.3) H 06/26/18 04:10 Eos % (Auto) 1.8 % (0.0-4.3) 06/26/18 04:10 Baso % (Auto) 1.0 % (0.0-1.8) 06/26/18 04:10 Lymph # 2.1 K/mm3 (1.2-5.4) 06/26/18 04:10 [place] # 0.7 K/mm3 (0.0-0.8) 06/26/18 04:10 Eos # 0.1 K/mm3 (0.0-0.4) 06/26/18 04:10 Baso # 0.1 K/mm3 (0.0-0.1) 06/26/18 04:10 Seg Neutrophils % 62.7 % (40.0-70.0) 06/26/18 04:10 Seg Neutrophils # 5.1 K/mm3 (1.8-7.7) 06/26/18 04:10 PT 20.2 Sec. (12.2-14.9) H 06/27/18 10:04 INR 1.62 (0.87-1.13) H 06/27/18 10:04 APTT 25.9 Sec. (24.2-36.6) 06/27/18 10:04 D-Dimer 370.07 ng/mlDDU (0-234) H 06/25/18 22:35 Sodium 137 mmol/L (137-145) 06/26/18 04:10 Potassium 3.9 mmol/L (3.6-5.0) 06/26/18 04:10 Chloride 99.1 mmol/L (98-107) 06/26/18 04:10 Carbon Dioxide 26 mmol/L (22-30) 06/26/18 04:10 Anion Gap 16 mmol/L 06/26/18 04:10 BUN 13 mg/dL (9-20) 06/26/18 04:10 Creatinine 0.9 mg/dL (0.8-1.5) 06/26/18 04:10 Estimated GFR > 60 ml/min 06/26/18 04:10 BUN/Creatinine Ratio 14 % 06/26/18 04:10 Glucose 143 mg/dL (75-100) H 06/26/18 04:10 POC Glucose 101 (70-105) 06/28/18 08:01 Calcium 8.8 mg/dL (8.4-10.2) 06/26/18 04:10 Total Bilirubin 0.40 mg/dL (0.1-1.2) 06/25/18 22:35 AST 15 units/L (5-40) 06/25/18 22:35 ALT 15 units/L (7-56) 06/25/18 22:35 Alkaline Phosphatase 81 units/L (35-129) 06/25/18 22:35 Total Protein 7.4 g/dL (6.3-8.2) 06/25/18 22:35 Albumin 4.5 g/dL (3.9-5) 06/25/18 22:35 Albumin/Globulin Ratio 1.6 % 06/25/18 22:35 Lipase 150 units/L (13-60) H 06/25/18 22:35 Urine Color Yellow (Yellow) 06/25/18 19:45 Urine Turbidity Clear (Clear) 06/25/18 19:45 Urine pH 5.0 (5.0-7.0) 06/25/18 19:45 Ur Specific [place] 1.019 (1.003-1.030) 06/25/18 19:45 Urine Protein <15 mg/dl mg/dL (Negative) 06/25/18 19:45 Urine Glucose (UA) Neg mg/dL (Negative) 06/25/18 19:45 Urine Ketones Neg mg/dL (Negative) 06/25/18 19:45 Urine Blood Mod (Negative) 06/25/18 19:45 Urine Nitrite Neg (Negative) 06/25/18 19:45 Urine Bilirubin Neg (Negative) 06/25/18 19:45 Urine Urobilinogen < 2.0 mg/dL (<2.0) 06/25/18 19:45 Ur Leukocyte Esterase Neg (Negative) 06/25/18 19:45 Urine WBC (Auto) 1.0 /HPF (0.0-6.0) 06/25/18 19:45 Urine RBC (Auto) 2.0 /HPF (0.0-6.0) 06/25/18 19:45 U Epithel Cells (Auto) < 1.0 /HPF (0-13.0) 06/25/18 19:45
[2018-06-28] MEDS: SODIUM CHLORIDE FLUSH SYRINGE 10 ML IV SCH ×2 (09:57→21:47)
[2018-06-28] MEDS: LOVENOX SUB-Q SCH (09:58)
[2018-06-28 11:04] LABS: INR 1.27 (0.87-1.13)
[2018-06-28] MEDS ORDERED: SUBLIMAZE IV NR (12:00)
[2018-06-28] MEDS ORDERED: VERSED IV NR (12:00)
[2018-06-28] MEDS ORDERED: VERSED IV ONE (12:03)
[2018-06-28] MEDS ORDERED: SUBLIMAZE ONE (12:03)
--- NOTE | 2018-06-28 12:18 | Hem/Onc Progress Note ---
Assessment and Plan # rt suprahilar - large mass # b/l adrenal mass d/w pt that this may be neoplastic admitted with left abdo/flank pain #HTN. - on meds #DM - on meds # h/o leg DVT in past Lung biopsy - 06/27 0 d/w reg clinical suspicion - Patient Problems (1) Lung mass Onset Date: ~06/26/18 Current Visit: Yes Status: Acute Subjective Date of service: 06/28/18 Interval history: due lung bx today feeling OK no abdo pain no vomiting Objective - Constitutional Vitals: Last Vital Signs Temp 98.2 F 06/28/18 05:17 Pulse 71 06/28/18 05:17 Resp 20 06/28/18 05:17 BP 133/69 06/28/18 05:17 Pulse Ox 98 06/28/18 05:17 - Labs Lab Results: Laboratory Results - last 24 hr 06/27/18 06/27/18 06/27/18 11:57 16:46 21:12 PT INR POC Glucose 114 H 80 175 H 06/28/18 06/28/18 08:01 10:30 PT 16.6 H INR 1.27 H POC Glucose 101
[2018-06-28] MEDS ORDERED: GELFOAM 12 X 7 TP ONE ×2 (13:19→15:14)
--- NOTE | 2018-06-28 15:33 | Cat Scan Report ---
Exam: CT-guided biopsy of left adrenal mass Clinical indication: Patient with a history of lung mass and bilateral adrenal masses Date: 06/28/2018 Procedure: Following estimation of the risks, benefits and alternatives; written informed consent was obtained. The patient was brought to the CT suite and placed in prone position on the gantry. Initial launderer hand images of his left back were performed an appropriate access site was chosen along the medial aspect of the spine. Patient's back was prepped and draped in the usual sterile fashion. 1% lidocaine was anesthesia. Using intermittent CT guidance, a 15 cm 19-gauge trocar needle was advanced to the margin of the renal mass. A 20-gauge biopsy needle was advanced to the mass a total of 3 core samples obtained as he developed and pathologist in attendance. The samples were determined to be adequate for pathologic analysis. The biopsy needle was removed and Gelfoam injected into the tract. The trocar needle was removed and hemostasis achieved at the skin surface using manual compression. A sterile dressing was applied. The patient tolerated the procedure well. There were no immediate post procedure complications. Conscious sedation was performed under the guidance of radiologic nursing. Continuous cardiopulmonary monitoring was utilized. Impression: 1) CT guided biopsy of left adrenal mass with 3 core samples obtained and sent off to pathology in attendance.
[2018-06-29 07:09] LABS: Hematocrit 37.1 % (35.5-45.6); Hemoglobin 12.7 gm/dl (11.8-15.2); Mean Corpuscular HGB Conc 34 % (32-34); Mean Corpuscular Volume 73 fl (84-94); Platelet Count 214 K/mm3 (140-440); Red Cell Distribution Width 15.6 % (13.2-15.2)
[2018-06-29 07:10] LABS: Mean Corpuscular Hemoglobin 25 pg (28-32)
[2018-06-29 07:34] LABS: BUN/Creatinine Ratio 12; Blood Urea Nitrogen 11 mg/dL (9-20); Hemolysis Index 3
[2018-06-29] MEDS: HumaLOG SUB-Q SCH ×4 (09:21→22:32)
[2018-06-29] MEDS: LOVENOX SUB-Q SCH (09:28)
[2018-06-29] MEDS: SODIUM CHLORIDE FLUSH SYRINGE 10 ML IV SCH ×2 (09:29→22:33)
--- NOTE | 2018-06-29 13:02 | Hem/Onc Progress Note ---
Assessment and Plan # rt suprahilar - large mass # b/l adrenal mass d/w pt that this may be neoplastic s/p left adrenal bx - 06/28 admitted with left abdo/flank pain #HTN. - on meds #DM - on meds # h/o DVT - 2011- was on anticoagulation pending path report of left adrenal bx - Patient Problems (1) Lung mass Onset Date: ~06/26/18 Current Visit: Yes Status: Acute Subjective Date of service: 06/29/18 Principal diagnosis: lung and adrenal mass Interval history: s/p adrenal bx - 06/28 - hence I could not see yesterday feeling ok eating no chest pain h/o leg DVT 2011 - had been on anticoagulation Objective - Constitutional Vitals: Last Vital Signs Temp 98.4 F 06/29/18 12:43 Pulse 70 06/29/18 12:43 Resp 15 06/29/18 12:43 BP 133/79 06/29/18 12:43 Pulse Ox 100 06/29/18 12:43 Pain Intensity (0-10): denies any pain General appearance: no acute distress Performance status: 0-fully active - EENT Eyes: PERRL ENT: clear oral mucosa Lymph node exam: negative cervical, negative supraclavicular - Neck Neck: supple - Respiratory Respiratory effort: Positive: normal Respiratory: bilateral: CTA - Cardiovascular Heart Sounds: Present: S1 & S2 Extremities: No edema - Gastrointestinal General gastrointestinal: Present: soft, non-tender Rectal Exam: deferred - Genitourinary Male genitourinary: Present: deferred - Integumentary Integumentary: warm - Musculoskeletal Musculoskeletal: strength equal bilaterally - Neurologic Neurologic: moves all extremities - Psychiatric Psychiatric: appropriate mood/affect - Allied health notes Allied health notes reviewed: nursing - Labs Lab Results: Laboratory Results - last 24 hr 06/28/18 06/28/18 06/29/18 16:18 22:22 05:08 WBC 6.1 RBC 5.10 H Hgb 12.7 Hct 37.1 MCV 73 L MCH 25 L MCHC 34 RDW 15.6 H Plt Count 214 Sodium Potassium Chloride Carbon Dioxide Anion Gap BUN Creatinine Estimated GFR BUN/Creatinine Ratio Glucose POC Glucose 130 H 114 H Calcium 06/29/18 06/29/18 06/29/18 05:08 08:10 12:40 WBC RBC Hgb Hct MCV MCH MCHC RDW Plt Count Sodium 141 Potassium 3.9 Chloride 99.0 Carbon Dioxide 28 Anion Gap 18 BUN 11 Creatinine 0.9 Estimated GFR > 60 BUN/Creatinine Ratio 12 Glucose 108 H POC Glucose 117 H 155 H Calcium 9.0
--- NOTE | 2018-06-29 14:03 | Progress Note ---
Assessment and Plan Assessment and plan: Right suprahilar mass. Oncology following Bilateral Adrenal masses. CT guided biopsy done 06/28, Diabetes mellitus type 2. Fingerstick q ac and hs Full code status. History of DVT left leg. Coumadin recheck INR today History Interval history: Less abdominal pain, No chest pain currently Hospitalist Physical - Physical exam Narrative exam: GEN:Not in acute distress, lying in bed HEENT: Normocephalic, atraumatic, Neck: supple, No JVD Lungs: Clear to auscultation bilaterally, no crackles Heart:S1 and S2 reg, no murmurs, rubs or gallop Abd:soft, non-tender, non-distended, Normal bowel sounds Ext: No edema, clubbing or cyanosis Neuro: Awake, alert, oriented X 3, Moves all extremities - Constitutional Vitals: Temp Pulse Resp BP Pulse Ox 98.4 F 70 15 133/79 100 06/29/18 12:43 06/29/18 12:43 06/29/18 12:43 06/29/18 12:43 06/29/18 12:43 General appearance: Present: no acute distress Results - Labs CBC & Chem 7: 06/29/18 05:08 06/29/18 05:08 Labs: Laboratory Last Values WBC 6.1 K/mm3 (4.5-11.0) 06/29/18 05:08 RBC 5.10 M/mm3 (3.65-5.03) H 06/29/18 05:08 Hgb 12.7 gm/dl (11.8-15.2) 06/29/18 05:08 Hct 37.1 % (35.5-45.6) 06/29/18 05:08 MCV 73 fl (84-94) L 06/29/18 05:08 MCH 25 pg (28-32) L 06/29/18 05:08 MCHC 34 % (32-34) 06/29/18 05:08 RDW 15.6 % (13.2-15.2) H 06/29/18 05:08 Plt Count 214 K/mm3 (140-440) 06/29/18 05:08 Lymph % (Auto) 26.0 % (13.4-35.0) 06/26/18 04:10 [place] % (Auto) 8.5 % (0.0-7.3) H 06/26/18 04:10 Eos % (Auto) 1.8 % (0.0-4.3) 06/26/18 04:10 Baso % (Auto) 1.0 % (0.0-1.8) 06/26/18 04:10 Lymph # 2.1 K/mm3 (1.2-5.4) 06/26/18 04:10 [place] # 0.7 K/mm3 (0.0-0.8) 06/26/18 04:10 Eos # 0.1 K/mm3 (0.0-0.4) 06/26/18 04:10 Baso # 0.1 K/mm3 (0.0-0.1) 06/26/18 04:10 Seg Neutrophils % 62.7 % (40.0-70.0) 06/26/18 04:10 Seg Neutrophils # 5.1 K/mm3 (1.8-7.7) 06/26/18 04:10 PT 16.6 Sec. (12.2-14.9) H 06/28/18 10:30 INR 1.27 (0.87-1.13) H 06/28/18 10:30 APTT 25.9 Sec. (24.2-36.6) 06/27/18 10:04 D-Dimer 370.07 ng/mlDDU (0-234) H 06/25/18 22:35 Sodium 141 mmol/L (137-145) 06/29/18 05:08 Potassium 3.9 mmol/L (3.6-5.0) 06/29/18 05:08 Chloride 99.0 mmol/L (98-107) 06/29/18 05:08 Carbon Dioxide 28 mmol/L (22-30) 06/29/18 05:08 Anion Gap 18 mmol/L 06/29/18 05:08 BUN 11 mg/dL (9-20) 06/29/18 05:08 Creatinine 0.9 mg/dL (0.8-1.5) 06/29/18 05:08 Estimated GFR > 60 ml/min 06/29/18 05:08 BUN/Creatinine Ratio 12 % 06/29/18 05:08 Glucose 108 mg/dL (75-100) H 06/29/18 05:08 POC Glucose 155 (70-105) H 06/29/18 12:40 Calcium 9.0 mg/dL (8.4-10.2) 06/29/18 05:08 Total Bilirubin 0.40 mg/dL (0.1-1.2) 06/25/18 22:35 AST 15 units/L (5-40) 06/25/18 22:35 ALT 15 units/L (7-56) 06/25/18 22:35 Alkaline Phosphatase 81 units/L (35-129) 06/25/18 22:35 Total Protein 7.4 g/dL (6.3-8.2) 06/25/18 22:35 Albumin 4.5 g/dL (3.9-5) 06/25/18 22:35 Albumin/Globulin Ratio 1.6 % 06/25/18 22:35 Lipase 150 units/L (13-60) H 06/25/18 22:35 Urine Color Yellow (Yellow) 06/25/18 19:45 Urine Turbidity Clear (Clear) 06/25/18 19:45 Urine pH 5.0 (5.0-7.0) 06/25/18 19:45 Ur Specific [place] 1.019 (1.003-1.030) 06/25/18 19:45 Urine Protein <15 mg/dl mg/dL (Negative) 06/25/18 19:45 Urine Glucose (UA) Neg mg/dL (Negative) 06/25/18 19:45 Urine Ketones Neg mg/dL (Negative) 06/25/18 19:45 Urine Blood Mod (Negative) 06/25/18 19:45 Urine Nitrite Neg (Negative) 06/25/18 19:45 Urine Bilirubin Neg (Negative) 06/25/18 19:45 Urine Urobilinogen < 2.0 mg/dL (<2.0) 06/25/18 19:45 Ur Leukocyte Esterase Neg (Negative) 06/25/18 19:45 Urine WBC (Auto) 1.0 /HPF (0.0-6.0) 06/25/18 19:45 Urine RBC (Auto) 2.0 /HPF (0.0-6.0) 06/25/18 19:45 U Epithel Cells (Auto) < 1.0 /HPF (0-13.0) 06/25/18 19:45
[2018-06-30 05:38] LABS: Hematocrit 38.7 % (35.5-45.6); Hemoglobin 12.7 gm/dl (11.8-15.2)
[2018-06-30 06:01] LABS: Iron 37 ug/dL (49-181); Total Iron Binding Capacity 235 mcg/dL (250-450)
[2018-06-30] MEDS: LOVENOX SUB-Q SCH ×2 (08:32→18:30)
[2018-06-30] MEDS: HumaLOG SUB-Q SCH ×4 (08:32→22:54)
--- NOTE | 2018-06-30 13:32 | Hem/Onc Progress Note ---
Assessment and Plan # rt suprahilar - large mass # b/l adrenal mass d/w pt that this may be neoplastic s/p left adrenal bx - 06/28 admitted with left abdo/flank pain # Low MCV - hb electrophoresis ordered, ferritin b12, folate normal - slightly low s iron - will follow #HTN. 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 Objective - Constitutional Vitals: Last Vital Signs Temp 97.9 F 06/30/18 06:08 Pulse 68 06/30/18 06:08 Resp 20 06/30/18 06:08 BP 126/77 06/30/18 06:08 Pulse Ox 99 06/30/18 06:08 Pain Intensity (0-10): denies any pain General appearance: no acute distress Performance status: 0-fully active - EENT Eyes: PERRL ENT: clear oral mucosa Lymph node exam: negative cervical, negative supraclavicular - Neck Neck: supple, normal ROM - Respiratory Respiratory effort: Positive: normal Respiratory: bilateral: CTA - Cardiovascular Heart Sounds: Present: S1 & S2 Extremities: No edema - Gastrointestinal General gastrointestinal: Present: soft, non-tender Rectal Exam: deferred - Genitourinary Male genitourinary: Present: deferred - Integumentary Integumentary: warm - Musculoskeletal Musculoskeletal: strength equal bilaterally - Neurologic Neurologic: moves all extremities - Psychiatric Psychiatric: appropriate mood/affect - Allied health notes Allied health notes reviewed: nursing - Labs Lab Results: Laboratory Results - last 24 hr 06/29/18 06/29/18 06/30/18 16:19 22:03 05:10 Hgb Hct POC Glucose 123 H 109 H Iron 37 L TIBC 235 L Ferritin Vitamin B12 Folate 06/30/18 06/30/18 06/30/18 05:10 05:10 05:10 Hgb Hct POC Glucose Iron TIBC Ferritin 307.5 Vitamin B12 567.6 Folate 11.67 06/30/18 06/30/18 06/30/18 05:10 08:05 12:34 Hgb 12.7 Hct 38.7 POC Glucose 116 H 127 H Iron TIBC Ferritin Vitamin B12 Folate
[2018-06-30] MEDS: SODIUM CHLORIDE FLUSH SYRINGE 10 ML IV SCH ×2 (18:30→22:54)
--- NOTE | 2018-06-30 19:17 | Progress Note ---
Assessment and Plan Assessment and plan: Right suprahilar mass. Oncology following Bilateral Adrenal masses. CT guided biopsy done 06/28, Pathology report pending Diabetes mellitus type 2. Fingerstick q ac and hs Full code status. History of DVT left leg. Coumadin History Interval history: Less abdominal pain, No chest pain currently, Awaiting result Hospitalist Physical - Physical exam Narrative exam: GEN:Not in acute distress, sitting up in chair HEENT: Normocephalic, atraumatic, Neck: supple, No JVD Lungs: Clear to auscultation bilaterally, no crackles Heart:S1 and S2 reg, no murmurs, rubs or gallop Abd:soft, non-tender, non-distended, Normal bowel sounds Ext: No edema, clubbing or cyanosis Neuro: Awake, alert, oriented X 3, Moves all extremities - Constitutional Vitals: Temp Pulse Resp BP Pulse Ox 98.2 F 74 16 139/74 99 06/30/18 18:30 06/30/18 18:30 06/30/18 18:30 06/30/18 18:30 06/30/18 18:30 General appearance: Present: no acute distress Results - Labs CBC & Chem 7: 06/30/18 05:10 06/29/18 05:08 Labs: Laboratory Last Values WBC 6.1 K/mm3 (4.5-11.0) 06/29/18 05:08 RBC 5.10 M/mm3 (3.65-5.03) H 06/29/18 05:08 Hgb 12.7 gm/dl (11.8-15.2) 06/30/18 05:10 Hct 38.7 % (35.5-45.6) 06/30/18 05:10 MCV 73 fl (84-94) L 06/29/18 05:08 MCH 25 pg (28-32) L 06/29/18 05:08 MCHC 34 % (32-34) 06/29/18 05:08 RDW 15.6 % (13.2-15.2) H 06/29/18 05:08 Plt Count 214 K/mm3 (140-440) 06/29/18 05:08 Lymph % (Auto) 26.0 % (13.4-35.0) 06/26/18 04:10 [place] % (Auto) 8.5 % (0.0-7.3) H 06/26/18 04:10 Eos % (Auto) 1.8 % (0.0-4.3) 06/26/18 04:10 Baso % (Auto) 1.0 % (0.0-1.8) 06/26/18 04:10 Lymph # 2.1 K/mm3 (1.2-5.4) 06/26/18 04:10 [place] # 0.7 K/mm3 (0.0-0.8) 06/26/18 04:10 Eos # 0.1 K/mm3 (0.0-0.4) 06/26/18 04:10 Baso # 0.1 K/mm3 (0.0-0.1) 06/26/18 04:10 Seg Neutrophils % 62.7 % (40.0-70.0) 06/26/18 04:10 Seg Neutrophils # 5.1 K/mm3 (1.8-7.7) 06/26/18 04:10 PT 16.6 Sec. (12.2-14.9) H 06/28/18 10:30 INR 1.27 (0.87-1.13) H 06/28/18 10:30 APTT 25.9 Sec. (24.2-36.6) 06/27/18 10:04 D-Dimer 370.07 ng/mlDDU (0-234) H 06/25/18 22:35 Sodium 141 mmol/L (137-145) 06/29/18 05:08 Potassium 3.9 mmol/L (3.6-5.0) 06/29/18 05:08 Chloride 99.0 mmol/L (98-107) 06/29/18 05:08 Carbon Dioxide 28 mmol/L (22-30) 06/29/18 05:08 Anion Gap 18 mmol/L 06/29/18 05:08 BUN 11 mg/dL (9-20) 06/29/18 05:08 Creatinine 0.9 mg/dL (0.8-1.5) 06/29/18 05:08 Estimated GFR > 60 ml/min 06/29/18 05:08 BUN/Creatinine Ratio 12 % 06/29/18 05:08 Glucose 108 mg/dL (75-100) H 06/29/18 05:08 POC Glucose 263 (70-105) H 06/30/18 18:29 Calcium 9.0 mg/dL (8.4-10.2) 06/29/18 05:08 Iron 37 ug/dL (49-181) L 06/30/18 05:10 TIBC 235 mcg/dL (250-450) L 06/30/18 05:10 Ferritin 307.5 ng/mL (13.0-400.0) 06/30/18 05:10 Total Bilirubin 0.40 mg/dL (0.1-1.2) 06/25/18 22:35 AST 15 units/L (5-40) 06/25/18 22:35 ALT 15 units/L (7-56) 06/25/18 22:35 Alkaline Phosphatase 81 units/L (35-129) 06/25/18 22:35 Total Protein 7.4 g/dL (6.3-8.2) 06/25/18 22:35 Albumin 4.5 g/dL (3.9-5) 06/25/18 22:35 Albumin/Globulin Ratio 1.6 % 06/25/18 22:35 Lipase 150 units/L (13-60) H 06/25/18 22:35 Vitamin B12 567.6 pg/mL (211-911) 06/30/18 05:10 Folate 11.67 ng/mL (7.3-26.0) 06/30/18 05:10 Urine Color Yellow (Yellow) 06/25/18 19:45 Urine Turbidity Clear (Clear) 06/25/18 19:45 Urine pH 5.0 (5.0-7.0) 06/25/18 19:45 Ur Specific [place] 1.019 (1.003-1.030) 06/25/18 19:45 Urine Protein <15 mg/dl mg/dL (Negative) 06/25/18 19:45 Urine Glucose (UA) Neg mg/dL (Negative) 06/25/18 19:45 Urine Ketones Neg mg/dL (Negative) 06/25/18 19:45 Urine Blood Mod (Negative) 06/25/18 19:45 Urine Nitrite Neg (Negative) 06/25/18 19:45 Urine Bilirubin Neg (Negative) 06/25/18 19:45 Urine Urobilinogen < 2.0 mg/dL (<2.0) 06/25/18 19:45 Ur Leukocyte Esterase Neg (Negative) 06/25/18 19:45 Urine WBC (Auto) 1.0 /HPF (0.0-6.0) 06/25/18 19:45 Urine RBC (Auto) 2.0 /HPF (0.0-6.0) 06/25/18 19:45 U Epithel Cells (Auto) < 1.0 /HPF (0-13.0) 06/25/18 19:45
[2018-07-01] MEDS: HumaLOG SUB-Q SCH ×4 (08:12→21:38)
[2018-07-01] MEDS: LOVENOX SUB-Q SCH (09:05)
[2018-07-01] MEDS: SODIUM CHLORIDE FLUSH SYRINGE 10 ML IV SCH ×2 (09:05→21:39)
--- NOTE | 2018-07-01 11:07 | Progress Note ---
Assessment and Plan Assessment and plan: Right suprahilar mass. Oncology following Bilateral Adrenal masses. CT guided biopsy done 06/28, Pathology report: Atypical cells on background of necrosis/. Oncologist to re- evaluate Diabetes mellitus type 2. Fingerstick q ac and hs Full code status. History of DVT left leg. Coumadin History Interval history: Less abdominal pain, No chest pain currently, Awaiting result Hospitalist Physical - Physical exam Narrative exam: GEN:Not in acute distress, sitting up in chair HEENT: Normocephalic, atraumatic, Neck: supple, No JVD Lungs: Clear to auscultation bilaterally, no crackles Heart:S1 and S2 reg, no murmurs, rubs or gallop Abd:soft, non-tender, non-distended, Normal bowel sounds Ext: No edema, clubbing or cyanosis Neuro: Awake, alert, oriented X 3, Moves all extremities - Constitutional Vitals: Temp Pulse Resp BP Pulse Ox 98.5 F 66 16 143/75 98 07/01/18 05:39 07/01/18 05:39 07/01/18 05:39 07/01/18 05:39 07/01/18 05:39 General appearance: Present: no acute distress Results - Labs CBC & Chem 7: 06/30/18 05:10 06/29/18 05:08 Labs: Laboratory Last Values WBC 6.1 K/mm3 (4.5-11.0) 06/29/18 05:08 RBC 5.10 M/mm3 (3.65-5.03) H 06/29/18 05:08 Hgb 12.7 gm/dl (11.8-15.2) 06/30/18 05:10 Hct 38.7 % (35.5-45.6) 06/30/18 05:10 MCV 73 fl (84-94) L 06/29/18 05:08 MCH 25 pg (28-32) L 06/29/18 05:08 MCHC 34 % (32-34) 06/29/18 05:08 RDW 15.6 % (13.2-15.2) H 06/29/18 05:08 Plt Count 214 K/mm3 (140-440) 06/29/18 05:08 Lymph % (Auto) 26.0 % (13.4-35.0) 06/26/18 04:10 [place] % (Auto) 8.5 % (0.0-7.3) H 06/26/18 04:10 Eos % (Auto) 1.8 % (0.0-4.3) 06/26/18 04:10 Baso % (Auto) 1.0 % (0.0-1.8) 06/26/18 04:10 Lymph # 2.1 K/mm3 (1.2-5.4) 06/26/18 04:10 [place] # 0.7 K/mm3 (0.0-0.8) 06/26/18 04:10 Eos # 0.1 K/mm3 (0.0-0.4) 06/26/18 04:10 Baso # 0.1 K/mm3 (0.0-0.1) 06/26/18 04:10 Seg Neutrophils % 62.7 % (40.0-70.0) 06/26/18 04:10 Seg Neutrophils # 5.1 K/mm3 (1.8-7.7) 06/26/18 04:10 PT 16.6 Sec. (12.2-14.9) H 06/28/18 10:30 INR 1.27 (0.87-1.13) H 06/28/18 10:30 APTT 25.9 Sec. (24.2-36.6) 06/27/18 10:04 D-Dimer 370.07 ng/mlDDU (0-234) H 06/25/18 22:35 Sodium 141 mmol/L (137-145) 06/29/18 05:08 Potassium 3.9 mmol/L (3.6-5.0) 06/29/18 05:08 Chloride 99.0 mmol/L (98-107) 06/29/18 05:08 Carbon Dioxide 28 mmol/L (22-30) 06/29/18 05:08 Anion Gap 18 mmol/L 06/29/18 05:08 BUN 11 mg/dL (9-20) 06/29/18 05:08 Creatinine 0.9 mg/dL (0.8-1.5) 06/29/18 05:08 Estimated GFR > 60 ml/min 06/29/18 05:08 BUN/Creatinine Ratio 12 % 06/29/18 05:08 Glucose 108 mg/dL (75-100) H 06/29/18 05:08 POC Glucose 132 (70-105) H 07/01/18 07:46 Calcium 9.0 mg/dL (8.4-10.2) 06/29/18 05:08 Iron 37 ug/dL (49-181) L 06/30/18 05:10 TIBC 235 mcg/dL (250-450) L 06/30/18 05:10 Ferritin 307.5 ng/mL (13.0-400.0) 06/30/18 05:10 Total Bilirubin 0.40 mg/dL (0.1-1.2) 06/25/18 22:35 AST 15 units/L (5-40) 06/25/18 22:35 ALT 15 units/L (7-56) 06/25/18 22:35 Alkaline Phosphatase 81 units/L (35-129) 06/25/18 22:35 Total Protein 7.4 g/dL (6.3-8.2) 06/25/18 22:35 Albumin 4.5 g/dL (3.9-5) 06/25/18 22:35 Albumin/Globulin Ratio 1.6 % 06/25/18 22:35 Lipase 150 units/L (13-60) H 06/25/18 22:35 Vitamin B12 567.6 pg/mL (211-911) 06/30/18 05:10 Folate 11.67 ng/mL (7.3-26.0) 06/30/18 05:10 Urine Color Yellow (Yellow) 06/25/18 19:45 Urine Turbidity Clear (Clear) 06/25/18 19:45 Urine pH 5.0 (5.0-7.0) 06/25/18 19:45 Ur Specific [place] 1.019 (1.003-1.030) 06/25/18 19:45 Urine Protein <15 mg/dl mg/dL (Negative) 06/25/18 19:45 Urine Glucose (UA) Neg mg/dL (Negative) 06/25/18 19:45 Urine Ketones Neg mg/dL (Negative) 06/25/18 19:45 Urine Blood Mod (Negative) 06/25/18 19:45 Urine Nitrite Neg (Negative) 06/25/18 19:45 Urine Bilirubin Neg (Negative) 06/25/18 19:45 Urine Urobilinogen < 2.0 mg/dL (<2.0) 06/25/18 19:45 Ur Leukocyte Esterase Neg (Negative) 06/25/18 19:45 Urine WBC (Auto) 1.0 /HPF (0.0-6.0) 06/25/18 19:45 Urine RBC (Auto) 2.0 /HPF (0.0-6.0) 06/25/18 19:45 U Epithel Cells (Auto) < 1.0 /HPF (0-13.0) 06/25/18 19:45
--- NOTE | 2018-07-01 18:47 | Hem/Onc Progress Note ---
Assessment and Plan # rt suprahilar - large mass # b/l adrenal mass d/w pt that this may be neoplastic s/p left adrenal bx - 06/28 was admitted with left abdo/flank pain # Low MCV - hb electrophoresis ordered, ferritin b12, folate normal - slightly low s iron - will follow - hb electrophoresis ordered. #HTN. - on meds #DM - on meds # h/o DVT - 2011- was on anticoagulation - coumadin at admission pending final path report of left adrenal bx - verbal path info - necrotic tissue present - d/w dr ugarte 06/30 option of Bronch vs IR lung biopsy evaluation while waiting for final path - Patient Problems (1) Lung mass Onset Date: ~06/26/18 Current Visit: Yes Status: Acute Subjective Date of service: 07/01/18 Principal diagnosis: lung and adrenal mass Interval history: s/p adrenal bx - 06/28. feeling ok eating no chest pain h/o leg DVT 2011 - had been on anticoagulation pathologist had mentioned on 06/30 that a lot of necrosis was present Objective - Constitutional Vitals: Last Vital Signs Temp 98.3 F 07/01/18 18:01 Pulse 60 07/01/18 18:01 Resp 18 07/01/18 18:01 BP 155/75 07/01/18 18:01 Pulse Ox 100 07/01/18 18:01 Pain Intensity (0-10): denies any pain General appearance: no acute distress Performance status: 0-fully active - EENT Eyes: PERRL ENT: clear oral mucosa Lymph node exam: negative cervical, negative supraclavicular - Neck Neck: supple - Respiratory Respiratory effort: Positive: normal Respiratory: bilateral: CTA - Cardiovascular Heart Sounds: Present: S1 & S2 Extremities: No edema - Gastrointestinal General gastrointestinal: Present: soft, non-tender Rectal Exam: deferred - Genitourinary Male genitourinary: Present: deferred - Integumentary Integumentary: warm - Musculoskeletal Musculoskeletal: strength equal bilaterally - Neurologic Neurologic: moves all extremities - Psychiatric Psychiatric: appropriate mood/affect - Labs Lab Results: Laboratory Results - last 24 hr 06/30/18 06/30/18 07/01/18 18:29 20:55 07:46 POC Glucose 263 H 231 H 132 H 07/01/18 11:58 POC Glucose 129 H
[2018-07-02] MEDS: HumaLOG SUB-Q SCH ×4 (08:00→22:00)
[2018-07-02] MEDS: SODIUM CHLORIDE FLUSH SYRINGE 10 ML IV SCH ×2 (10:52→22:00)
[2018-07-02] MEDS: LOVENOX SUB-Q SCH (10:53)
--- NOTE | 2018-07-02 10:54 | Progress Note ---
Assessment and Plan Assessment and plan: Right suprahilar mass. Oncology following Bilateral Adrenal masses. CT guided biopsy done 06/28, Pathology report: Atypical cells on background of necrosis. Discussed with Dr. Gross, Oncologist. He recommends re-consulting IR to do CT biopsy of hilar mass. I discussed with Dr. Crespo, and he will re-evaluate. Diabetes mellitus type 2. Fingerstick q ac and hs Full code status. History of DVT left leg. Coumadin on hold. To resume after procedures History Interval history: ess abdominal pain, No chest pain currently, Hospitalist Physical - Physical exam Narrative exam: GEN:Not in acute distress, sitting up in chair HEENT: Normocephalic, atraumatic, Neck: supple, No JVD Lungs: Clear to auscultation bilaterally, no crackles Heart:S1 and S2 reg, no murmurs, rubs or gallop Abd:soft, non-tender, non-distended, Normal bowel sounds Ext: No edema, clubbing or cyanosis Neuro: Awake, alert, oriented X 3, Moves all extremities - Constitutional Vitals: Temp Pulse Resp BP Pulse Ox 98.6 F 75 20 125/74 99 07/02/18 05:02 07/02/18 05:02 07/02/18 05:02 07/02/18 05:02 07/02/18 05:02 General appearance: Present: no acute distress Results - Labs CBC & Chem 7: 06/30/18 05:10 06/29/18 05:08 Labs: Laboratory Last Values WBC 6.1 K/mm3 (4.5-11.0) 06/29/18 05:08 RBC 5.10 M/mm3 (3.65-5.03) H 06/29/18 05:08 Hgb 12.7 gm/dl (11.8-15.2) 06/30/18 05:10 Hct 38.7 % (35.5-45.6) 06/30/18 05:10 MCV 73 fl (84-94) L 06/29/18 05:08 MCH 25 pg (28-32) L 06/29/18 05:08 MCHC 34 % (32-34) 06/29/18 05:08 RDW 15.6 % (13.2-15.2) H 06/29/18 05:08 Plt Count 214 K/mm3 (140-440) 06/29/18 05:08 Lymph % (Auto) 26.0 % (13.4-35.0) 06/26/18 04:10 [place] % (Auto) 8.5 % (0.0-7.3) H 06/26/18 04:10 Eos % (Auto) 1.8 % (0.0-4.3) 06/26/18 04:10 Baso % (Auto) 1.0 % (0.0-1.8) 06/26/18 04:10 Lymph # 2.1 K/mm3 (1.2-5.4) 06/26/18 04:10 [place] # 0.7 K/mm3 (0.0-0.8) 06/26/18 04:10 Eos # 0.1 K/mm3 (0.0-0.4) 06/26/18 04:10 Baso # 0.1 K/mm3 (0.0-0.1) 06/26/18 04:10 Seg Neutrophils % 62.7 % (40.0-70.0) 06/26/18 04:10 Seg Neutrophils # 5.1 K/mm3 (1.8-7.7) 06/26/18 04:10 PT 16.6 Sec. (12.2-14.9) H 06/28/18 10:30 INR 1.27 (0.87-1.13) H 06/28/18 10:30 APTT 25.9 Sec. (24.2-36.6) 06/27/18 10:04 D-Dimer 370.07 ng/mlDDU (0-234) H 06/25/18 22:35 Sodium 141 mmol/L (137-145) 06/29/18 05:08 Potassium 3.9 mmol/L (3.6-5.0) 06/29/18 05:08 Chloride 99.0 mmol/L (98-107) 06/29/18 05:08 Carbon Dioxide 28 mmol/L (22-30) 06/29/18 05:08 Anion Gap 18 mmol/L 06/29/18 05:08 BUN 11 mg/dL (9-20) 06/29/18 05:08 Creatinine 0.9 mg/dL (0.8-1.5) 06/29/18 05:08 Estimated GFR > 60 ml/min 06/29/18 05:08 BUN/Creatinine Ratio 12 % 06/29/18 05:08 Glucose 108 mg/dL (75-100) H 06/29/18 05:08 POC Glucose 126 (70-105) H 07/02/18 07:34 Calcium 9.0 mg/dL (8.4-10.2) 06/29/18 05:08 Iron 37 ug/dL (49-181) L 06/30/18 05:10 TIBC 235 mcg/dL (250-450) L 06/30/18 05:10 Ferritin 307.5 ng/mL (13.0-400.0) 06/30/18 05:10 Total Bilirubin 0.40 mg/dL (0.1-1.2) 06/25/18 22:35 AST 15 units/L (5-40) 06/25/18 22:35 ALT 15 units/L (7-56) 06/25/18 22:35 Alkaline Phosphatase 81 units/L (35-129) 06/25/18 22:35 Total Protein 7.4 g/dL (6.3-8.2) 06/25/18 22:35 Albumin 4.5 g/dL (3.9-5) 06/25/18 22:35 Albumin/Globulin Ratio 1.6 % 06/25/18 22:35 Lipase 150 units/L (13-60) H 06/25/18 22:35 Vitamin B12 567.6 pg/mL (211-911) 06/30/18 05:10 Folate 11.67 ng/mL (7.3-26.0) 06/30/18 05:10 Urine Color Yellow (Yellow) 06/25/18 19:45 Urine Turbidity Clear (Clear) 06/25/18 19:45 Urine pH 5.0 (5.0-7.0) 06/25/18 19:45 Ur Specific [place] 1.019 (1.003-1.030) 06/25/18 19:45 Urine Protein <15 mg/dl mg/dL (Negative) 06/25/18 19:45 Urine Glucose (UA) Neg mg/dL (Negative) 06/25/18 19:45 Urine Ketones Neg mg/dL (Negative) 06/25/18 19:45 Urine Blood Mod (Negative) 06/25/18 19:45 Urine Nitrite Neg (Negative) 06/25/18 19:45 Urine Bilirubin Neg (Negative) 06/25/18 19:45 Urine Urobilinogen < 2.0 mg/dL (<2.0) 06/25/18 19:45 Ur Leukocyte Esterase Neg (Negative) 06/25/18 19:45 Urine WBC (Auto) 1.0 /HPF (0.0-6.0) 06/25/18 19:45 Urine RBC (Auto) 2.0 /HPF (0.0-6.0) 06/25/18 19:45 U Epithel Cells (Auto) < 1.0 /HPF (0-13.0) 06/25/18 19:45
[2018-07-03 07:11] LABS: Hematocrit 38.8 % (35.5-45.6); Mean Corpuscular HGB Conc 33 % (32-34); Mean Corpuscular Volume 73 fl (84-94); Platelet Count 218 K/mm3 (140-440); Red Blood Count 5.32 M/mm3 (3.65-5.03); Red Cell Distribution Width 15.6 % (13.2-15.2)
[2018-07-03 07:13] LABS: Mean Corpuscular Hemoglobin 24 pg (28-32)
[2018-07-03 07:27] LABS: BUN/Creatinine Ratio 10; Blood Urea Nitrogen 9 mg/dL (9-20); Calcium 9.4 mg/dL (8.4-10.2); Hemolysis Index 2
--- NOTE | 2018-07-03 08:11 | Hem/Onc Progress Note ---
Assessment and Plan # rt suprahilar - large mass # b/l adrenal mass d/w pt that this may be neoplastic s/p left adrenal bx - 06/28 was admitted with left abdo/flank pain # Low MCV - hb electrophoresis ordered, ferritin b12, folate normal - slightly low s iron - will follow - hb electrophoresis ordered. #HTN. - on meds #DM - on meds # h/o DVT - 2011- was on anticoagulation - coumadin at admission pending final path report of left adrenal bx - verbal path info - necrotic tissue present - d/w dr ugarte 06/30 option of Bronch vs IR lung biopsy evaluation while waiting for final path - Patient Problems (1) Lung mass Onset Date: ~06/26/18 Current Visit: Yes Status: Acute Subjective Date of service: 07/03/18 Principal diagnosis: lung and adrenal mass Interval history: s/p adrenal bx - 06/28. feeling ok eating no chest pain h/o leg DVT 2011 - had been on anticoagulation pathologist had mentioned on 06/30 that a lot of necrosis was present Objective - Constitutional Vitals: Last Vital Signs Temp 98.5 F 07/03/18 04:28 Pulse 71 07/03/18 04:28 Resp 20 07/03/18 04:28 BP 123/82 07/03/18 04:28 Pulse Ox 98 07/03/18 04:28 Pain Intensity (0-10): denies any pain General appearance: no acute distress Performance status: 0-fully active - EENT Eyes: PERRL ENT: clear oral mucosa Lymph node exam: negative cervical, negative supraclavicular - Neck Neck: supple - Respiratory Respiratory effort: Positive: normal Respiratory: bilateral: CTA - Cardiovascular Heart Sounds: Present: S1 & S2 Extremities: No edema - Gastrointestinal General gastrointestinal: Present: soft, non-tender Rectal Exam: deferred - Genitourinary Male genitourinary: Present: deferred - Integumentary Integumentary: warm - Musculoskeletal Musculoskeletal: strength equal bilaterally - Neurologic Neurologic: moves all extremities - Psychiatric Psychiatric: appropriate mood/affect - Allied health notes Allied health notes reviewed: nursing - Labs Lab Results: Laboratory Results - last 24 hr 07/02/18 07/02/18 07/02/18 11:17 16:16 21:05 WBC RBC Hgb Hct MCV MCH MCHC RDW Plt Count Sodium Potassium Chloride Carbon Dioxide Anion Gap BUN Creatinine Estimated GFR BUN/Creatinine Ratio Glucose POC Glucose 167 H 119 H 140 H Calcium 07/03/18 07/03/18 05:56 05:56 WBC 5.8 RBC 5.32 H Hgb 13.0 Hct 38.8 MCV 73 L MCH 24 L MCHC 33 RDW 15.6 H Plt Count 218 Sodium 142 Potassium 4.5 Chloride 101.9 Carbon Dioxide 29 Anion Gap 16 BUN 9 Creatinine 0.9 Estimated GFR > 60 BUN/Creatinine Ratio 10 Glucose 127 H POC Glucose Calcium 9.4
[2018-07-03] MEDS: HumaLOG SUB-Q SCH ×4 (09:33→22:54)
[2018-07-03] MEDS: LOVENOX SUB-Q SCH ×2 (10:30→12:19)
[2018-07-03] MEDS: SODIUM CHLORIDE FLUSH SYRINGE 10 ML IV SCH ×2 (12:14→22:55)
--- NOTE | 2018-07-03 12:50 | Progress Note ---
Assessment and Plan - Patient Problems (1) Lung mass Onset Date: ~06/26/18 Current Visit: Yes Status: Acute Plan to address problem: Patient presents with hilar mass in the lung. Could not obtain biopsy today secondary to by mouth status. We'll make patient nothing by mouth after midnight reordered examination for RRR to obtain lung biopsy. (2) Diabetes Current Visit: Yes Status: Acute Plan to address problem: At present patient has fair control of diabetes. Would not adjust medications especially since patient BNP abdomen night and has not totally gained his appetite back. (3) DVT (deep venous thrombosis) Current Visit: Yes Status: Acute Plan to address problem: Patient with acute DVT Coumadin currently on hold secondary to procedure History Interval history: Patient today feels somewhat better. Patient did eat today and was not able to get CT-guided biopsy of hilar mass. Patient denies any chest pain does have shortness of breath unchanged. Hospitalist Physical - Constitutional Vitals: Temp Pulse Resp BP Pulse Ox 98.5 F 71 20 123/82 98 07/03/18 04:28 07/03/18 04:28 07/03/18 04:28 07/03/18 04:28 07/03/18 04:28 General appearance: Present: no acute distress - EENT Eyes: Present: PERRL, EOM intact. Absent: scleral icterus, conjunctival injection, exopthalmos ENT: hearing intact, clear oral mucosa, dentition normal, no oropharyngeal erythema, no poor dentition, no thrush, no ulcerations - Neck Neck: Present: supple, normal ROM - Respiratory Respiratory: bilateral: diminished, rhonchi (few), negative: wheezing - Cardiovascular Rhythm: regular Heart Sounds: Present: S1 & S2 - Extremities Extremities: no ischemia, pulses intact, pulses symmetrical, No edema, normal temperature, normal color Peripheral Pulses: within normal limits - Abdominal General gastrointestinal: soft, non-tender, non-distended, normal bowel sounds, no hepatomegaly, no splenomegaly, no mass, no hernia - Integumentary Integumentary: Present: clear, warm, dry - Psychiatric Psychiatric: appropriate mood/affect, intact judgment & insight, memory intact - Neurologic Neurologic: CNII-XII intact Results - Labs CBC & Chem 7: 07/03/18 05:56 07/03/18 05:56 Labs: Laboratory Last Values WBC 5.8 K/mm3 (4.5-11.0) 07/03/18 05:56 RBC 5.32 M/mm3 (3.65-5.03) H 07/03/18 05:56 Hgb 13.0 gm/dl (11.8-15.2) 07/03/18 05:56 Hct 38.8 % (35.5-45.6) 07/03/18 05:56 MCV 73 fl (84-94) L 07/03/18 05:56 MCH 24 pg (28-32) L 07/03/18 05:56 MCHC 33 % (32-34) 07/03/18 05:56 RDW 15.6 % (13.2-15.2) H 07/03/18 05:56 Plt Count 218 K/mm3 (140-440) 07/03/18 05:56 Lymph % (Auto) 26.0 % (13.4-35.0) 06/26/18 04:10 [place] % (Auto) 8.5 % (0.0-7.3) H 06/26/18 04:10 Eos % (Auto) 1.8 % (0.0-4.3) 06/26/18 04:10 Baso % (Auto) 1.0 % (0.0-1.8) 06/26/18 04:10 Lymph # 2.1 K/mm3 (1.2-5.4) 06/26/18 04:10 [place] # 0.7 K/mm3 (0.0-0.8) 06/26/18 04:10 Eos # 0.1 K/mm3 (0.0-0.4) 06/26/18 04:10 Baso # 0.1 K/mm3 (0.0-0.1) 06/26/18 04:10 Seg Neutrophils % 62.7 % (40.0-70.0) 06/26/18 04:10 Seg Neutrophils # 5.1 K/mm3 (1.8-7.7) 06/26/18 04:10 PT 16.6 Sec. (12.2-14.9) H 06/28/18 10:30 INR 1.27 (0.87-1.13) H 06/28/18 10:30 APTT 25.9 Sec. (24.2-36.6) 06/27/18 10:04 D-Dimer 370.07 ng/mlDDU (0-234) H 06/25/18 22:35 Sodium 142 mmol/L (137-145) 07/03/18 05:56 Potassium 4.5 mmol/L (3.6-5.0) 07/03/18 05:56 Chloride 101.9 mmol/L (98-107) 07/03/18 05:56 Carbon Dioxide 29 mmol/L (22-30) 07/03/18 05:56 Anion Gap 16 mmol/L 07/03/18 05:56 BUN 9 mg/dL (9-20) 07/03/18 05:56 Creatinine 0.9 mg/dL (0.8-1.5) 07/03/18 05:56 Estimated GFR > 60 ml/min 07/03/18 05:56 BUN/Creatinine Ratio 10 % 07/03/18 05:56 Glucose 127 mg/dL (75-100) H 07/03/18 05:56 POC Glucose 160 (70-105) H 07/03/18 11:20 Calcium 9.4 mg/dL (8.4-10.2) 07/03/18 05:56 Iron 37 ug/dL (49-181) L 06/30/18 05:10 TIBC 235 mcg/dL (250-450) L 06/30/18 05:10 Ferritin 307.5 ng/mL (13.0-400.0) 06/30/18 05:10 Total Bilirubin 0.40 mg/dL (0.1-1.2) 06/25/18 22:35 AST 15 units/L (5-40) 06/25/18 22:35 ALT 15 units/L (7-56) 06/25/18 22:35 Alkaline Phosphatase 81 units/L (35-129) 06/25/18 22:35 Total Protein 7.4 g/dL (6.3-8.2) 06/25/18 22:35 Albumin 4.5 g/dL (3.9-5) 06/25/18 22:35 Albumin/Globulin Ratio 1.6 % 06/25/18 22:35 Lipase 150 units/L (13-60) H 06/25/18 22:35 Vitamin B12 567.6 pg/mL (211-911) 06/30/18 05:10 Folate 11.67 ng/mL (7.3-26.0) 06/30/18 05:10 Urine Color Yellow (Yellow) 06/25/18 19:45 Urine Turbidity Clear (Clear) 06/25/18 19:45 Urine pH 5.0 (5.0-7.0) 06/25/18 19:45 Ur Specific [place] 1.019 (1.003-1.030) 06/25/18 19:45 Urine Protein <15 mg/dl mg/dL (Negative) 06/25/18 19:45 Urine Glucose (UA) Neg mg/dL (Negative) 06/25/18 19:45 Urine Ketones Neg mg/dL (Negative) 06/25/18 19:45 Urine Blood Mod (Negative) 06/25/18 19:45 Urine Nitrite Neg (Negative) 06/25/18 19:45 Urine Bilirubin Neg (Negative) 06/25/18 19:45 Urine Urobilinogen < 2.0 mg/dL (<2.0) 06/25/18 19:45 Ur Leukocyte Esterase Neg (Negative) 06/25/18 19:45 Urine WBC (Auto) 1.0 /HPF (0.0-6.0) 06/25/18 19:45 Urine RBC (Auto) 2.0 /HPF (0.0-6.0) 06/25/18 19:45 U Epithel Cells (Auto) < 1.0 /HPF (0-13.0) 06/25/18 19:45
--- NOTE | 2018-07-04 05:33 | Event Note ---
Date: 07/04/18 CT scan of Chest reviewed. Pt would benefit from endobronchial biopsy given the central location of his mass. This can be preformed as an outpatient if necessary.
--- NOTE | 2018-07-04 07:55 | Hem/Onc Progress Note ---
Assessment and Plan # rt suprahilar - large mass # b/l adrenal mass d/w pt that this may be neoplastic s/p left adrenal bx - 06/28 was admitted with left abdo/flank pain # Low MCV - hb electrophoresis ordered, ferritin b12, folate normal - slightly low s iron - will follow - hb electrophoresis ordered. #HTN. - on meds #DM - on meds # h/o DVT - 2011- was on anticoagulation - coumadin at admission 07/04 - pending final path report of left adrenal bx - verbal path info - necrotic tissue present option of Bronch vs IR lung biopsy evaluation while waiting for final path - pt says due Bronch bx, however note mentions as OP - Patient Problems (1) Lung mass Onset Date: ~06/26/18 Current Visit: Yes Status: Acute Subjective Date of service: 07/04/18 Principal diagnosis: lung and adrenal mass Interval history: s/p adrenal bx - 06/28. feeling ok eating no chest pain h/o leg DVT 2011 - had been on anticoagulation coumadin pathologist had mentioned on 06/30 that a lot of necrosis was present 07/04 - final path pending from bx - cytology negative IR note mentions bronch bx Objective - Constitutional Vitals: Last Vital Signs Temp 99.1 F 07/04/18 06:06 Pulse 68 07/04/18 06:06 Resp 20 07/04/18 06:06 BP 129/79 07/04/18 06:06 Pulse Ox 98 07/04/18 06:06 Pain Intensity (0-10): denies any pain General appearance: no acute distress Performance status: 0-fully active - EENT Eyes: PERRL ENT: clear oral mucosa Lymph node exam: negative cervical, negative supraclavicular - Neck Neck: supple - Respiratory Respiratory effort: Positive: normal Respiratory: bilateral: CTA - Cardiovascular Heart Sounds: Present: S1 & S2 Extremities: No edema - Gastrointestinal General gastrointestinal: Present: soft, non-tender Rectal Exam: deferred - Genitourinary Male genitourinary: Present: deferred - Integumentary Integumentary: warm - Musculoskeletal Musculoskeletal: strength equal bilaterally - Neurologic Neurologic: moves all extremities - Psychiatric Psychiatric: appropriate mood/affect - Labs Lab Results: Laboratory Results - last 24 hr 07/03/18 07/03/18 07/03/18 11:20 16:21 21:42 POC Glucose 160 H 168 H 168 H 07/04/18 07:44 POC Glucose 145 H
[2018-07-04] MEDS: HumaLOG SUB-Q SCH ×4 (08:09→22:41)
[2018-07-04] MEDS: LOVENOX SUB-Q SCH (10:29)
--- NOTE | 2018-07-04 12:34 | Progress Note ---
Assessment and Plan Assessment and plan: (1) Lung mass Patient presents with hilar mass in the lung. Could not obtain biopsy today secondary to location of the mass amenable for access. Pulmonary consultation for possible bronchoscopy/biopsy. Diabetes mellitus type II At present patient has fair control of diabetes. Would not adjust medications DVT (deep venous thrombosis) Patient with acute DVT Coumadin currently on hold until evaluated by pulmonary for possible procedure History Interval history: No new issues overnight. Hospitalist Physical - Constitutional Vitals: Temp Pulse Resp BP Pulse Ox 99.1 F 68 20 129/79 98 07/04/18 06:06 07/04/18 06:06 07/04/18 06:06 07/04/18 06:06 07/04/18 06:06 General appearance: Present: no acute distress - EENT Eyes: Present: PERRL, EOM intact ENT: hearing intact, clear oral mucosa, dentition normal - Neck Neck: Present: supple, normal ROM - Respiratory Respiratory effort: normal Respiratory: bilateral: CTA - Cardiovascular Rhythm: regular Heart Sounds: Present: S1 & S2. Absent: gallop, rub - Extremities Extremities: no ischemia, No edema, Full ROM - Abdominal General gastrointestinal: soft, non-tender, non-distended, normal bowel sounds - Integumentary Integumentary: Present: clear, warm, dry - Neurologic Neurologic: CNII-XII intact, moves all extremities Results - Labs CBC & Chem 7: 07/03/18 05:56 07/03/18 05:56 Labs: Laboratory Last Values WBC 5.8 K/mm3 (4.5-11.0) 07/03/18 05:56 RBC 5.32 M/mm3 (3.65-5.03) H 07/03/18 05:56 Hgb 13.0 gm/dl (11.8-15.2) 07/03/18 05:56 Hct 38.8 % (35.5-45.6) 07/03/18 05:56 MCV 73 fl (84-94) L 07/03/18 05:56 MCH 24 pg (28-32) L 07/03/18 05:56 MCHC 33 % (32-34) 07/03/18 05:56 RDW 15.6 % (13.2-15.2) H 07/03/18 05:56 Plt Count 218 K/mm3 (140-440) 07/03/18 05:56 Lymph % (Auto) 26.0 % (13.4-35.0) 06/26/18 04:10 [place] % (Auto) 8.5 % (0.0-7.3) H 06/26/18 04:10 Eos % (Auto) 1.8 % (0.0-4.3) 06/26/18 04:10 Baso % (Auto) 1.0 % (0.0-1.8) 06/26/18 04:10 Lymph # 2.1 K/mm3 (1.2-5.4) 06/26/18 04:10 [place] # 0.7 K/mm3 (0.0-0.8) 06/26/18 04:10 Eos # 0.1 K/mm3 (0.0-0.4) 06/26/18 04:10 Baso # 0.1 K/mm3 (0.0-0.1) 06/26/18 04:10 Seg Neutrophils % 62.7 % (40.0-70.0) 06/26/18 04:10 Seg Neutrophils # 5.1 K/mm3 (1.8-7.7) 06/26/18 04:10 PT 16.6 Sec. (12.2-14.9) H 06/28/18 10:30 INR 1.27 (0.87-1.13) H 06/28/18 10:30 APTT 25.9 Sec. (24.2-36.6) 06/27/18 10:04 D-Dimer 370.07 ng/mlDDU (0-234) H 06/25/18 22:35 Sodium 142 mmol/L (137-145) 07/03/18 05:56 Potassium 4.5 mmol/L (3.6-5.0) 07/03/18 05:56 Chloride 101.9 mmol/L (98-107) 07/03/18 05:56 Carbon Dioxide 29 mmol/L (22-30) 07/03/18 05:56 Anion Gap 16 mmol/L 07/03/18 05:56 BUN 9 mg/dL (9-20) 07/03/18 05:56 Creatinine 0.9 mg/dL (0.8-1.5) 07/03/18 05:56 Estimated GFR > 60 ml/min 07/03/18 05:56 BUN/Creatinine Ratio 10 % 07/03/18 05:56 Glucose 127 mg/dL (75-100) H 07/03/18 05:56 POC Glucose 196 (70-105) H 07/04/18 12:06 Calcium 9.4 mg/dL (8.4-10.2) 07/03/18 05:56 Iron 37 ug/dL (49-181) L 06/30/18 05:10 TIBC 235 mcg/dL (250-450) L 06/30/18 05:10 Ferritin 307.5 ng/mL (13.0-400.0) 06/30/18 05:10 Total Bilirubin 0.40 mg/dL (0.1-1.2) 06/25/18 22:35 AST 15 units/L (5-40) 06/25/18 22:35 ALT 15 units/L (7-56) 06/25/18 22:35 Alkaline Phosphatase 81 units/L (35-129) 06/25/18 22:35 Total Protein 7.4 g/dL (6.3-8.2) 06/25/18 22:35 Albumin 4.5 g/dL (3.9-5) 06/25/18 22:35 Albumin/Globulin Ratio 1.6 % 06/25/18 22:35 Lipase 150 units/L (13-60) H 06/25/18 22:35 Vitamin B12 567.6 pg/mL (211-911) 06/30/18 05:10 Folate 11.67 ng/mL (7.3-26.0) 06/30/18 05:10 Urine Color Yellow (Yellow) 06/25/18 19:45 Urine Turbidity Clear (Clear) 06/25/18 19:45 Urine pH 5.0 (5.0-7.0) 06/25/18 19:45 Ur Specific [place] 1.019 (1.003-1.030) 06/25/18 19:45 Urine Protein <15 mg/dl mg/dL (Negative) 06/25/18 19:45 Urine Glucose (UA) Neg mg/dL (Negative) 06/25/18 19:45 Urine Ketones Neg mg/dL (Negative) 06/25/18 19:45 Urine Blood Mod (Negative) 06/25/18 19:45 Urine Nitrite Neg (Negative) 06/25/18 19:45 Urine Bilirubin Neg (Negative) 06/25/18 19:45 Urine Urobilinogen < 2.0 mg/dL (<2.0) 06/25/18 19:45 Ur Leukocyte Esterase Neg (Negative) 06/25/18 19:45 Urine WBC (Auto) 1.0 /HPF (0.0-6.0) 06/25/18 19:45 Urine RBC (Auto) 2.0 /HPF (0.0-6.0) 06/25/18 19:45 U Epithel Cells (Auto) < 1.0 /HPF (0-13.0) 06/25/18 19:45
[2018-07-04] MEDS: SODIUM CHLORIDE FLUSH SYRINGE 10 ML IV SCH ×2 (13:10→22:10)
[2018-07-05] MEDS: HumaLOG SUB-Q SCH ×4 (08:47→22:55)
--- NOTE | 2018-07-05 09:53 | Progress Note ---
Assessment and Plan Assessment and plan: (1) Lung mass Patient presents with hilar mass in the lung. Could not obtain biopsy today secondary to location of the mass amenable for access. Pulmonary consultation for possible bronchoscopy/biopsy. Diabetes mellitus type II At present patient has fair control of diabetes. Would not adjust medications DVT (deep venous thrombosis) Patient with acute DVT Coumadin currently on hold until evaluated by pulmonary for possible procedure History Interval history: No new issues overnight. Hospitalist Physical - Constitutional Vitals: Temp Pulse Resp BP Pulse Ox 97.7 F 90 18 139/83 98 07/05/18 06:12 07/05/18 06:12 07/05/18 06:12 07/05/18 06:12 07/05/18 06:12 General appearance: Present: no acute distress - EENT Eyes: Present: PERRL, EOM intact ENT: hearing intact, clear oral mucosa, dentition normal - Neck Neck: Present: supple, normal ROM - Respiratory Respiratory effort: normal Respiratory: bilateral: CTA - Cardiovascular Rhythm: regular Heart Sounds: Present: S1 & S2. Absent: gallop, rub - Extremities Extremities: no ischemia, No edema, Full ROM - Abdominal General gastrointestinal: soft, non-tender, non-distended, normal bowel sounds - Integumentary Integumentary: Present: clear, warm, dry - Neurologic Neurologic: CNII-XII intact, moves all extremities Results - Labs CBC & Chem 7: 07/03/18 05:56 07/03/18 05:56 Labs: Laboratory Last Values WBC 5.8 K/mm3 (4.5-11.0) 07/03/18 05:56 RBC 5.32 M/mm3 (3.65-5.03) H 07/03/18 05:56 Hgb 13.0 gm/dl (11.8-15.2) 07/03/18 05:56 Hct 38.8 % (35.5-45.6) 07/03/18 05:56 MCV 73 fl (84-94) L 07/03/18 05:56 MCH 24 pg (28-32) L 07/03/18 05:56 MCHC 33 % (32-34) 07/03/18 05:56 RDW 15.6 % (13.2-15.2) H 07/03/18 05:56 Plt Count 218 K/mm3 (140-440) 07/03/18 05:56 Lymph % (Auto) 26.0 % (13.4-35.0) 06/26/18 04:10 [place] % (Auto) 8.5 % (0.0-7.3) H 06/26/18 04:10 Eos % (Auto) 1.8 % (0.0-4.3) 06/26/18 04:10 Baso % (Auto) 1.0 % (0.0-1.8) 06/26/18 04:10 Lymph # 2.1 K/mm3 (1.2-5.4) 06/26/18 04:10 [place] # 0.7 K/mm3 (0.0-0.8) 06/26/18 04:10 Eos # 0.1 K/mm3 (0.0-0.4) 06/26/18 04:10 Baso # 0.1 K/mm3 (0.0-0.1) 06/26/18 04:10 Seg Neutrophils % 62.7 % (40.0-70.0) 06/26/18 04:10 Seg Neutrophils # 5.1 K/mm3 (1.8-7.7) 06/26/18 04:10 PT 16.6 Sec. (12.2-14.9) H 06/28/18 10:30 INR 1.27 (0.87-1.13) H 06/28/18 10:30 APTT 25.9 Sec. (24.2-36.6) 06/27/18 10:04 D-Dimer 370.07 ng/mlDDU (0-234) H 06/25/18 22:35 Sodium 142 mmol/L (137-145) 07/03/18 05:56 Potassium 4.5 mmol/L (3.6-5.0) 07/03/18 05:56 Chloride 101.9 mmol/L (98-107) 07/03/18 05:56 Carbon Dioxide 29 mmol/L (22-30) 07/03/18 05:56 Anion Gap 16 mmol/L 07/03/18 05:56 BUN 9 mg/dL (9-20) 07/03/18 05:56 Creatinine 0.9 mg/dL (0.8-1.5) 07/03/18 05:56 Estimated GFR > 60 ml/min 07/03/18 05:56 BUN/Creatinine Ratio 10 % 07/03/18 05:56 Glucose 127 mg/dL (75-100) H 07/03/18 05:56 POC Glucose 139 (70-105) H 07/05/18 08:16 Calcium 9.4 mg/dL (8.4-10.2) 07/03/18 05:56 Iron 37 ug/dL (49-181) L 06/30/18 05:10 TIBC 235 mcg/dL (250-450) L 06/30/18 05:10 Ferritin 307.5 ng/mL (13.0-400.0) 06/30/18 05:10 Total Bilirubin 0.40 mg/dL (0.1-1.2) 06/25/18 22:35 AST 15 units/L (5-40) 06/25/18 22:35 ALT 15 units/L (7-56) 06/25/18 22:35 Alkaline Phosphatase 81 units/L (35-129) 06/25/18 22:35 Total Protein 7.4 g/dL (6.3-8.2) 06/25/18 22:35 Albumin 4.5 g/dL (3.9-5) 06/25/18 22:35 Albumin/Globulin Ratio 1.6 % 06/25/18 22:35 Lipase 150 units/L (13-60) H 06/25/18 22:35 Vitamin B12 567.6 pg/mL (211-911) 06/30/18 05:10 Folate 11.67 ng/mL (7.3-26.0) 06/30/18 05:10 Urine Color Yellow (Yellow) 06/25/18 19:45 Urine Turbidity Clear (Clear) 06/25/18 19:45 Urine pH 5.0 (5.0-7.0) 06/25/18 19:45 Ur Specific [place] 1.019 (1.003-1.030) 06/25/18 19:45 Urine Protein <15 mg/dl mg/dL (Negative) 06/25/18 19:45 Urine Glucose (UA) Neg mg/dL (Negative) 06/25/18 19:45 Urine Ketones Neg mg/dL (Negative) 06/25/18 19:45 Urine Blood Mod (Negative) 06/25/18 19:45 Urine Nitrite Neg (Negative) 06/25/18 19:45 Urine Bilirubin Neg (Negative) 06/25/18 19:45 Urine Urobilinogen < 2.0 mg/dL (<2.0) 06/25/18 19:45 Ur Leukocyte Esterase Neg (Negative) 06/25/18 19:45 Urine WBC (Auto) 1.0 /HPF (0.0-6.0) 06/25/18 19:45 Urine RBC (Auto) 2.0 /HPF (0.0-6.0) 06/25/18 19:45 U Epithel Cells (Auto) < 1.0 /HPF (0-13.0) 06/25/18 19:45
[2018-07-05] MEDS: SODIUM CHLORIDE FLUSH SYRINGE 10 ML IV SCH ×2 (10:18→22:56)
[2018-07-05] MEDS: LOVENOX SUB-Q SCH (10:18)
--- NOTE | 2018-07-05 12:59 | Hem/Onc Progress Note ---
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 #HTN. - on meds #DM - on meds # h/o DVT - 2011- was on anticoagulation - coumadin at admission d/w path reg the bx report 07/05 we will await bronch bx - in pt vs OP - Patient Problems (1) Lung mass Onset Date: ~06/26/18 Current Visit: Yes Status: Acute Subjective Date of service: 07/05/18 Principal diagnosis: lung and adrenal mass Interval history: s/p adrenal bx - 06/28. feeling ok eating no chest pain h/o leg DVT 2011 - had been on anticoagulation coumadin final path of lung bx out IR note mentions bronch bx Objective - Constitutional Vitals: Last Vital Signs Temp 97.7 F 07/05/18 06:12 Pulse 90 07/05/18 06:12 Resp 16 07/05/18 10:00 BP 139/83 07/05/18 06:12 Pulse Ox 98 07/05/18 06:12 Pain Intensity (0-10): denies any pain General appearance: no acute distress Performance status: 0-fully active - EENT Eyes: PERRL ENT: clear oral mucosa Lymph node exam: negative cervical, negative supraclavicular - Neck Neck: supple - Respiratory Respiratory effort: Positive: normal Respiratory: bilateral: CTA - Cardiovascular Heart Sounds: Present: S1 & S2 Extremities: No edema - Gastrointestinal General gastrointestinal: Present: soft, non-tender Rectal Exam: deferred - Genitourinary Male genitourinary: Present: deferred - Integumentary Integumentary: clear - Musculoskeletal Musculoskeletal: strength equal bilaterally - Neurologic Neurologic: moves all extremities - Psychiatric Psychiatric: appropriate mood/affect - Allied health notes Allied health notes reviewed: nursing - Labs Lab Results: Laboratory Results - last 24 hr 07/04/18 07/04/18 07/05/18 17:25 21:20 08:16 POC Glucose 175 H 155 H 139 H 07/05/18 11:08 POC Glucose 170 H
--- NOTE | 2018-07-05 13:04 | Consultation ---
History of Present Illness Consult date: 07/05/18 Requesting physician: GLORY CARVER Reason for consult: other (Bronchoscopy for hilar mass) History of present illness: 62-year-old man history of diabetes, unprovoked DVT several years ago, life daniel non smoker, admitted through the ER to emergency room with complaints of abdominal pain located in the left lower quadrant . He admitted to nausea and vomiting, shortness of breath,and significant weight loss. He was found to have lung mass with extensive adenopathy. Also noted to have adrenal mass s/p non diagnostic biopsy. We have been consulted for diagnostic bronchoscopy. Patient was seen and examined. Vitals, labs, medications, chart and imaging reviewed. Denies any pain, at this time. He is just worried about "what next" Review of systems Constitutional: positive weight loss, no chills, no fevers Ears, eyes, nose, mouth and throat: no nasal congestion, no nasal discharge, no sinus pressure, no vision change, no red eye. Neck: No neck pain or rigidity. Cardiovascular: no chest pain, palpitations Respiratory: no cough, shortness of breath Gastrointestinal: no hematochezia Genitourinary : no frequency , no hematuria Musculoskeletal: no joint swelling or muscle ache Integumentary: no rash, no pruritis Neurological: no parathesias, no numbness, no focal weakness Endocrine: no cold or heat intolerance, no polyuria or polydipsia Hematologic/Lymphatic: no easy bruising, no easy bleeding, no gland swelling Allergic/Immunologic: no urticaria, no angioedema. PAST MEDICAL HISTORY: Diabetes, DVT PAST SURGICAL HISTORY: None SOCIAL HISTORY: No alcohol, no drugs, tobacco. 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 [employer] FAMILY HISTORY: Hypertension Past History Past Medical History: diabetes, hypertension, hyperlipidemia Past Surgical History: No surgical history Social history: denies: smoking Family history: no significant family history Medications and Allergies Allergies Allergy/AdvReac Type Severity Reaction Status Date / Time No Known Allergies Allergy Verified 06/23/18 10:10 Home Medications Medication Instructions Recorded Confirmed Last Taken Type Lisinopril [Prinivil] 10 mg PO DAILY 06/26/18 06/26/18 Unknown History Simvastatin 40 mg PO QHS 06/26/18 06/26/18 Unknown History Warfarin Sodium [Jantoven] 7.5 mg PO 3XW 06/26/18 06/26/18 Unknown History Warfarin Sodium [Jantoven] 10 mg PO 4XW 06/26/18 06/26/18 Unknown History metFORMIN [Glucophage] 1,000 mg PO BID 06/26/18 06/26/18 Unknown History Active Meds: Active Medications Acetaminophen (Tylenol) 650 mg PO Q4H PRN PRN Reason: Pain MILD(1-3)/Fever >100.5/HERNANDEZ Dextrose (D50w (25gm) Syringe) 50 ml IV PRN PRN PRN Reason: Hypoglycemia Enoxaparin Sodium (Lovenox) 40 mg SUB-Q QDAY [facility] Last Admin: 07/05/18 10:18 Dose: 40 mg Insulin Human Lispro (Humalog) 0 unit SUB-Q ACHS [facility]; Protocol Last Admin: 07/05/18 11:57 Dose: 1 unit Ondansetron HCl (Zofran) 4 mg IV Q8H PRN PRN Reason: Nausea And Vomiting Oxycodone/Acetaminophen (Percocet 5/325) 1 tab PO Q6H PRN PRN Reason: Pain, Moderate (4-6) Sodium Chloride (Sodium Chloride Flush Syringe 10 Ml) 10 ml IV BID [facility] Last Admin: 07/05/18 10:18 Dose: 10 ml Sodium Chloride (Sodium Chloride Flush Syringe 10 Ml) 10 ml IV PRN PRN PRN Reason: LINE FLUSH Physical Examination Vital signs: Vital Signs Temp Pulse Resp BP Pulse Ox 98.1 F 99 H 16 148/86 97 06/25/18 19:15 06/25/18 19:15 06/25/18 19:15 06/25/18 19:15 06/25/18 19:15 GEN:Not in acute distress, sitting up in a chair, chronically ill looking HEENT: Normocephalic, atraumatic, Neck: supple, No JVD Lungs: Clear to auscultation bilaterally, no crackles Heart:S1 and S2 reg, no murmurs, rubs or gallop Abd:soft, non-tender, non-distended, Normal bowel sounds Ext: No edema, clubbing or cyanosis Neuro: Awake, alert, oriented X 3, Moves all extremities Results - Laboratory Findings CBC and BMP: 07/03/18 05:56 07/03/18 05:56 PT/INR, D-dimer PT 16.6 Sec. (12.2-14.9) H 06/28/18 10:30 INR 1.27 (0.87-1.13) H 06/28/18 10:30 D-Dimer 370.07 ng/mlDDU (0-234) H 06/25/18 22:35 Abnormal lab findings: Abnormal Labs 06/25/18 06/25/18 06/25/18 19:23 22:35 22:35 RBC 5.63 H MCV 74 L MCH 25 L RDW 16.0 H [place] % (Auto) 8.3 H Seg Neutrophils % 70.3 H PT INR D-Dimer Chloride 97.9 L Glucose 149 H POC Glucose 113 H Iron TIBC Lipase 150 H 06/25/18 06/26/18 06/26/18 22:35 04:10 04:10 RBC 5.25 H MCV 74 L MCH 25 L RDW 15.9 H [place] % (Auto) 8.5 H Seg Neutrophils % PT INR D-Dimer 370.07 H Chloride Glucose 143 H POC Glucose Iron TIBC Lipase 06/26/18 06/26/18 06/26/18 11:08 16:40 20:58 RBC MCV MCH RDW [place] % (Auto) Seg Neutrophils % PT INR D-Dimer Chloride Glucose POC Glucose 159 H 188 H 120 H Iron TIBC Lipase 06/27/18 06/27/18 06/27/18 07:55 10:04 11:57 RBC MCV MCH RDW [place] % (Auto) Seg Neutrophils % PT 20.2 H INR 1.62 H D-Dimer Chloride Glucose POC Glucose 120 H 114 H Iron TIBC Lipase 06/27/18 06/28/18 06/28/18 21:12 10:30 16:18 RBC MCV MCH RDW [place] % (Auto) Seg Neutrophils % PT 16.6 H INR 1.27 H D-Dimer Chloride Glucose POC Glucose 175 H 130 H Iron TIBC Lipase 06/28/18 06/29/18 06/29/18 22:22 05:08 05:08 RBC 5.10 H MCV 73 L MCH 25 L RDW 15.6 H [place] % (Auto) Seg Neutrophils % PT INR D-Dimer Chloride Glucose 108 H POC Glucose 114 H Iron TIBC Lipase 06/29/18 06/29/18 06/29/18 08:10 12:40 16:19 RBC MCV MCH RDW [place] % (Auto) Seg Neutrophils % PT INR D-Dimer Chloride Glucose POC Glucose 117 H 155 H 123 H Iron TIBC Lipase 06/29/18 06/30/18 06/30/18 22:03 05:10 08:05 RBC MCV MCH RDW [place] % (Auto) Seg Neutrophils % PT INR D-Dimer Chloride Glucose POC Glucose 109 H 116 H Iron 37 L TIBC 235 L Lipase 06/30/18 06/30/18 06/30/18 12:34 18:29 20:55 RBC MCV MCH RDW [place] % (Auto) Seg Neutrophils % PT INR D-Dimer Chloride Glucose POC Glucose 127 H 263 H 231 H Iron TIBC Lipase 07/01/18 07/01/18 07/01/18 07:46 11:58 16:35 RBC MCV MCH RDW [place] % (Auto) Seg Neutrophils % PT INR D-Dimer Chloride Glucose POC Glucose 132 H 129 H 132 H Iron TIBC Lipase 07/01/18 07/02/18 07/02/18 21:01 07:34 11:17 RBC MCV MCH RDW [place] % (Auto) Seg Neutrophils % PT INR D-Dimer Chloride Glucose POC Glucose 175 H 126 H 167 H Iron TIBC Lipase 07/02/18 07/02/18 07/03/18 16:16 21:05 05:56 RBC 5.32 H MCV 73 L MCH 24 L RDW 15.6 H [place] % (Auto) Seg Neutrophils % PT INR D-Dimer Chloride Glucose POC Glucose 119 H 140 H Iron TIBC Lipase 07/03/18 07/03/18 07/03/18 05:56 11:20 16:21 RBC MCV MCH RDW [place] % (Auto) Seg Neutrophils % PT INR D-Dimer Chloride Glucose 127 H POC Glucose 160 H 168 H Iron TIBC Lipase 07/03/18 07/04/18 07/04/18 21:42 07:44 12:06 RBC MCV MCH RDW [place] % (Auto) Seg Neutrophils % PT INR D-Dimer Chloride Glucose POC Glucose 168 H 145 H 196 H Iron TIBC Lipase 07/04/18 07/04/18 07/05/18 17:25 21:20 08:16 RBC MCV MCH RDW [place] % (Auto) Seg Neutrophils % PT INR D-Dimer Chloride Glucose POC Glucose 175 H 155 H 139 H Iron TIBC Lipase 07/05/18 11:08 RBC MCV MCH RDW [place] % (Auto) Seg Neutrophils % PT INR D-Dimer Chloride Glucose POC Glucose 170 H Iron TIBC Lipase - Diagnostic Findings CT scan - chest: image reviewed Assessment and Plan -Right hilar/lung mass with bilateral adrenal masses, possibly metastatic lung disease. Differentials include lymphoma - Adrenal masses s/p biopsy--non diagnostic -h/o VTE, anticoagulation on hold -Cachexia -Hold VTE prophylaxis. Discussed with hospitalist and radiologist. Plan for diagnostic bronchosocpy on Tuesday. Needs bronchoscopy done prior to discharge planning. Continue all current care. Thank you for the consult
--- NOTE | 2018-07-05 18:43 | Event Note ---
Date: 07/05/[address] chest with IR. Feel the pleural based lesion appears to be atelectatic lung; mass is more amenable to bronchoscopy. Plan for bronchosocpy for Tuesday
[2018-07-06] MEDS: HumaLOG SUB-Q SCH ×4 (08:25→22:02)
--- NOTE | 2018-07-06 11:33 | Progress Note ---
Assessment and Plan Assessment and plan: Lung mass Patient presents with hilar mass in the lung. Could not obtain biopsy today secondary to location of the mass amenable for access. Pulmonary to perform bronchoscopy/biopsy in a.m. Diabetes mellitus type II At present patient has fair control of diabetes. Would not adjust medications DVT (deep venous thrombosis) Patient with acute DVT Coumadin currently on hold until evaluated by pulmonary for possible procedure Disposition Anticipate discharge in a.m. with follow-up of biopsy results as an outpatient. History Interval history: No new issues overnight. Hospitalist Physical - Constitutional Vitals: Temp Pulse Resp BP Pulse Ox 98.4 F 84 20 110/63 98 07/06/18 04:35 07/06/18 04:35 07/06/18 04:35 07/06/18 04:35 07/06/18 04:35 General appearance: Present: no acute distress - EENT Eyes: Present: PERRL, EOM intact ENT: hearing intact, clear oral mucosa, dentition normal - Neck Neck: Present: supple, normal ROM - Respiratory Respiratory effort: normal Respiratory: bilateral: CTA - Cardiovascular Rhythm: regular Heart Sounds: Present: S1 & S2. Absent: gallop, rub - Extremities Extremities: no ischemia, No edema, Full ROM - Abdominal General gastrointestinal: soft, non-tender, non-distended, normal bowel sounds - Integumentary Integumentary: Present: clear, warm, dry - Neurologic Neurologic: CNII-XII intact, moves all extremities Results - Labs CBC & Chem 7: 07/03/18 05:56 07/03/18 05:56 Labs: Laboratory Last Values WBC 5.8 K/mm3 (4.5-11.0) 07/03/18 05:56 RBC 5.32 M/mm3 (3.65-5.03) H 07/03/18 05:56 Hgb 13.0 gm/dl (11.8-15.2) 07/03/18 05:56 Hct 38.8 % (35.5-45.6) 07/03/18 05:56 MCV 73 fl (84-94) L 07/03/18 05:56 MCH 24 pg (28-32) L 07/03/18 05:56 MCHC 33 % (32-34) 07/03/18 05:56 RDW 15.6 % (13.2-15.2) H 07/03/18 05:56 Plt Count 218 K/mm3 (140-440) 07/03/18 05:56 Lymph % (Auto) 26.0 % (13.4-35.0) 06/26/18 04:10 [place] % (Auto) 8.5 % (0.0-7.3) H 06/26/18 04:10 Eos % (Auto) 1.8 % (0.0-4.3) 06/26/18 04:10 Baso % (Auto) 1.0 % (0.0-1.8) 06/26/18 04:10 Lymph # 2.1 K/mm3 (1.2-5.4) 06/26/18 04:10 [place] # 0.7 K/mm3 (0.0-0.8) 06/26/18 04:10 Eos # 0.1 K/mm3 (0.0-0.4) 06/26/18 04:10 Baso # 0.1 K/mm3 (0.0-0.1) 06/26/18 04:10 Seg Neutrophils % 62.7 % (40.0-70.0) 06/26/18 04:10 Seg Neutrophils # 5.1 K/mm3 (1.8-7.7) 06/26/18 04:10 PT 16.6 Sec. (12.2-14.9) H 06/28/18 10:30 INR 1.27 (0.87-1.13) H 06/28/18 10:30 APTT 25.9 Sec. (24.2-36.6) 06/27/18 10:04 D-Dimer 370.07 ng/mlDDU (0-234) H 06/25/18 22:35 Sodium 142 mmol/L (137-145) 07/03/18 05:56 Potassium 4.5 mmol/L (3.6-5.0) 07/03/18 05:56 Chloride 101.9 mmol/L (98-107) 07/03/18 05:56 Carbon Dioxide 29 mmol/L (22-30) 07/03/18 05:56 Anion Gap 16 mmol/L 07/03/18 05:56 BUN 9 mg/dL (9-20) 07/03/18 05:56 Creatinine 0.9 mg/dL (0.8-1.5) 07/03/18 05:56 Estimated GFR > 60 ml/min 07/03/18 05:56 BUN/Creatinine Ratio 10 % 07/03/18 05:56 Glucose 127 mg/dL (75-100) H 07/03/18 05:56 POC Glucose 134 (70-105) H 07/06/18 08:23 Calcium 9.4 mg/dL (8.4-10.2) 07/03/18 05:56 Iron 37 ug/dL (49-181) L 06/30/18 05:10 TIBC 235 mcg/dL (250-450) L 06/30/18 05:10 Ferritin 307.5 ng/mL (13.0-400.0) 06/30/18 05:10 Total Bilirubin 0.40 mg/dL (0.1-1.2) 06/25/18 22:35 AST 15 units/L (5-40) 06/25/18 22:35 ALT 15 units/L (7-56) 06/25/18 22:35 Alkaline Phosphatase 81 units/L (35-129) 06/25/18 22:35 Total Protein 7.4 g/dL (6.3-8.2) 06/25/18 22:35 Albumin 4.5 g/dL (3.9-5) 06/25/18 22:35 Albumin/Globulin Ratio 1.6 % 06/25/18 22:35 Lipase 150 units/L (13-60) H 06/25/18 22:35 Vitamin B12 567.6 pg/mL (211-911) 06/30/18 05:10 Folate 11.67 ng/mL (7.3-26.0) 06/30/18 05:10 Urine Color Yellow (Yellow) 06/25/18 19:45 Urine Turbidity Clear (Clear) 06/25/18 19:45 Urine pH 5.0 (5.0-7.0) 06/25/18 19:45 Ur Specific [place] 1.019 (1.003-1.030) 06/25/18 19:45 Urine Protein <15 mg/dl mg/dL (Negative) 06/25/18 19:45 Urine Glucose (UA) Neg mg/dL (Negative) 06/25/18 19:45 Urine Ketones Neg mg/dL (Negative) 06/25/18 19:45 Urine Blood Mod (Negative) 06/25/18 19:45 Urine Nitrite Neg (Negative) 06/25/18 19:45 Urine Bilirubin Neg (Negative) 06/25/18 19:45 Urine Urobilinogen < 2.0 mg/dL (<2.0) 06/25/18 19:45 Ur Leukocyte Esterase Neg (Negative) 06/25/18 19:45 Urine WBC (Auto) 1.0 /HPF (0.0-6.0) 06/25/18 19:45 Urine RBC (Auto) 2.0 /HPF (0.0-6.0) 06/25/18 19:45 U Epithel Cells (Auto) < 1.0 /HPF (0-13.0) 06/25/18 19:45
[2018-07-06] MEDS: SODIUM CHLORIDE FLUSH SYRINGE 10 ML IV SCH ×2 (11:54→22:01)
[2018-07-06 12:37] LABS: Basophils # (Auto) 0.1 K/mm3 (0.0-0.1); Basophils % (Auto) 1.2 % (0.0-1.8); Eosinophils # (Auto) 0.1 K/mm3 (0.0-0.4); Eosinophils % (Auto) 1.6 % (0.0-4.3); Hematocrit 40.8 % (35.5-45.6); Hemoglobin 13.9 gm/dl (11.8-15.2); Lymphocytes # (Auto) 1.9 K/mm3 (1.2-5.4); Lymphocytes % (Auto) 24.5 % (13.4-35.0); Mean Corpuscular HGB Conc 34 % (32-34); Mean Corpuscular Volume 73 fl (84-94); Monocytes # (Auto) 0.6 K/mm3 (0.0-0.8); Monocytes % (Auto) 7.3 % (0.0-7.3); Platelet Count 232 K/mm3 (140-440); Red Blood Count 5.62 M/mm3 (3.65-5.03); Red Cell Distribution Width 15.7 % (13.2-15.2)
[2018-07-06 12:38] LABS: Mean Corpuscular Hemoglobin 25 pg (28-32)
[2018-07-06 12:51] LABS: BUN/Creatinine Ratio 10; Blood Urea Nitrogen 10 mg/dL (9-20); Calcium 9.7 mg/dL (8.4-10.2); Hemolysis Index 1
--- NOTE | 2018-07-06 14:59 | Hem/Onc Progress Note ---
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 #HTN. - on meds #DM - on meds # h/o DVT - 2011- was on anticoagulation - coumadin at admission d/w path reg the adrenal bx report 07/05 bronch bx eval - Patient Problems (1) Lung mass Onset Date: ~06/26/18 Current Visit: Yes Status: Acute Subjective Date of service: 07/06/18 Principal diagnosis: feeling fine - due bronch bx Interval history: s/p adrenal bx - 06/28. feeling ok eating no chest pain h/o leg DVT 2011 - had been on anticoagulation coumadin bronch bx Objective - Constitutional Vitals: Last Vital Signs Temp 98.4 F 07/06/18 04:35 Pulse 84 07/06/18 04:35 Resp 20 07/06/18 04:35 BP 110/63 07/06/18 04:35 Pulse Ox 98 07/06/18 04:35 Pain Intensity (0-10): denies any pain General appearance: no acute distress Performance status: 0-fully active - EENT Eyes: PERRL ENT: clear oral mucosa Lymph node exam: negative cervical, negative supraclavicular - Neck Neck: supple, normal ROM - Respiratory Respiratory effort: Positive: normal Respiratory: bilateral: CTA - Cardiovascular Heart Sounds: Present: S1 & S2 Extremities: No edema - Gastrointestinal General gastrointestinal: Present: soft, non-tender Rectal Exam: deferred - Genitourinary Male genitourinary: Present: deferred - Integumentary Integumentary: warm - Musculoskeletal Musculoskeletal: strength equal bilaterally - Neurologic Neurologic: moves all extremities - Psychiatric Psychiatric: appropriate mood/affect, cooperative - Labs Lab Results: Laboratory Results - last 24 hr 07/05/18 07/05/18 07/06/18 16:23 21:49 08:23 WBC RBC Hgb Hct MCV MCH MCHC RDW Plt Count Lymph % (Auto) [place] % (Auto) Eos % (Auto) Baso % (Auto) Lymph # [place] # Eos # Baso # Seg Neutrophils % Seg Neutrophils # Sodium Potassium Chloride Carbon Dioxide Anion Gap BUN Creatinine Estimated GFR BUN/Creatinine Ratio Glucose POC Glucose 136 H 205 H 134 H Calcium 07/06/18 07/06/18 07/06/18 12:09 12:09 12:10 WBC 7.7 RBC 5.62 H Hgb 13.9 Hct 40.8 MCV 73 L MCH 25 L MCHC 34 RDW 15.7 H Plt Count 232 Lymph % (Auto) 24.5 [place] % (Auto) 7.3 Eos % (Auto) 1.6 Baso % (Auto) 1.2 Lymph # 1.9 [place] # 0.6 Eos # 0.1 Baso # 0.1 Seg Neutrophils % 65.4 Seg Neutrophils # 5.0 Sodium 138 Potassium 5.2 H Chloride 99.2 Carbon Dioxide 30 Anion Gap 14 BUN 10 Creatinine 1.0 Estimated GFR > 60 BUN/Creatinine Ratio 10 Glucose 135 H POC Glucose 107 H Calcium 9.7
--- NOTE | 2018-07-06 20:24 | Progress Note ---
Assessment and Plan atient sleeping at this time. On room air. O2 saturation 98%.No acute respiratory distress. - Patient Problems (1) Lung mass Onset Date: ~06/26/18 Current Visit: Yes Status: Acute Plan to address problem: Considering bronchoscopy. (2) Diabetes Current Visit: Yes Status: Acute Plan to address problem: Management as per primary care. Subjective Date of service: 07/06/18 Principal diagnosis: feeling fine - due bronch bx Interval history: Patient sleeping at this time. On room air. O2 saturation 98%.No acute respiratory distress. Objective Constitutional: no acute distress, asleep Eyes: non-icteric Neck: supple, no lymphadenopathy Ascultation: Left: diminished breath sounds, rhonchi Cardiovascular: regular rate and rhythm Gastrointestinal: normoactive bowel sounds, soft, non-tender Integumentary: normal Extremities: no cyanosis, no edema Neurologic: other (Sleeping at this time.) Psychiatric: other (Sleeping at this time.) CBC and BMP: 07/06/18 12:09 07/06/18 12:09 ABG, PT/INR, D-dimer: PT/INR, D-dimer PT 16.6 Sec. (12.2-14.9) H 06/28/18 10:30 INR 1.27 (0.87-1.13) H 06/28/18 10:30 D-Dimer 370.07 ng/mlDDU (0-234) H 06/25/18 22:35 Abnormal lab findings: Abnormal Labs 06/25/18 06/25/18 06/25/18 19:23 22:35 22:35 RBC 5.63 H MCV 74 L MCH 25 L RDW 16.0 H [place] % (Auto) 8.3 H Seg Neutrophils % 70.3 H PT INR D-Dimer Potassium Chloride 97.9 L Glucose 149 H POC Glucose 113 H Iron TIBC Lipase 150 H 06/25/18 06/26/18 06/26/18 22:35 04:10 04:10 RBC 5.25 H MCV 74 L MCH 25 L RDW 15.9 H [place] % (Auto) 8.5 H Seg Neutrophils % PT INR D-Dimer 370.07 H Potassium Chloride Glucose 143 H POC Glucose Iron TIBC Lipase 06/26/18 06/26/18 06/26/18 11:08 16:40 20:58 RBC MCV MCH RDW [place] % (Auto) Seg Neutrophils % PT INR D-Dimer Potassium Chloride Glucose POC Glucose 159 H 188 H 120 H Iron TIBC Lipase 06/27/18 06/27/18 06/27/18 07:55 10:04 11:57 RBC MCV MCH RDW [place] % (Auto) Seg Neutrophils % PT 20.2 H INR 1.62 H D-Dimer Potassium Chloride Glucose POC Glucose 120 H 114 H Iron TIBC Lipase 06/27/18 06/28/18 06/28/18 21:12 10:30 16:18 RBC MCV MCH RDW [place] % (Auto) Seg Neutrophils % PT 16.6 H INR 1.27 H D-Dimer Potassium Chloride Glucose POC Glucose 175 H 130 H Iron TIBC Lipase 06/28/18 06/29/18 06/29/18 22:22 05:08 05:08 RBC 5.10 H MCV 73 L MCH 25 L RDW 15.6 H [place] % (Auto) Seg Neutrophils % PT INR D-Dimer Potassium Chloride Glucose 108 H POC Glucose 114 H Iron TIBC Lipase 06/29/18 06/29/18 06/29/18 08:10 12:40 16:19 RBC MCV MCH RDW [place] % (Auto) Seg Neutrophils % PT INR D-Dimer Potassium Chloride Glucose POC Glucose 117 H 155 H 123 H Iron TIBC Lipase 06/29/18 06/30/18 06/30/18 22:03 05:10 08:05 RBC MCV MCH RDW [place] % (Auto) Seg Neutrophils % PT INR D-Dimer Potassium Chloride Glucose POC Glucose 109 H 116 H Iron 37 L TIBC 235 L Lipase 06/30/18 06/30/18 06/30/18 12:34 18:29 20:55 RBC MCV MCH RDW [place] % (Auto) Seg Neutrophils % PT INR D-Dimer Potassium Chloride Glucose POC Glucose 127 H 263 H 231 H Iron TIBC Lipase 07/01/18 07/01/18 07/01/18 07:46 11:58 16:35 RBC MCV MCH RDW [place] % (Auto) Seg Neutrophils % PT INR D-Dimer Potassium Chloride Glucose POC Glucose 132 H 129 H 132 H Iron TIBC Lipase 07/01/18 07/02/18 07/02/18 21:01 07:34 11:17 RBC MCV MCH RDW [place] % (Auto) Seg Neutrophils % PT INR D-Dimer Potassium Chloride Glucose POC Glucose 175 H 126 H 167 H Iron TIBC Lipase 07/02/18 07/02/18 07/03/18 16:16 21:05 05:56 RBC 5.32 H MCV 73 L MCH 24 L RDW 15.6 H [place] % (Auto) Seg Neutrophils % PT INR D-Dimer Potassium Chloride Glucose POC Glucose 119 H 140 H Iron TIBC Lipase 07/03/18 07/03/18 07/03/18 05:56 11:20 16:21 RBC MCV MCH RDW [place] % (Auto) Seg Neutrophils % PT INR D-Dimer Potassium Chloride Glucose 127 H POC Glucose 160 H 168 H Iron TIBC Lipase 07/03/18 07/04/18 07/04/18 21:42 07:44 12:06 RBC MCV MCH RDW [place] % (Auto) Seg Neutrophils % PT INR D-Dimer Potassium Chloride Glucose POC Glucose 168 H 145 H 196 H Iron TIBC Lipase 07/04/18 07/04/18 07/05/18 17:25 21:20 08:16 RBC MCV MCH RDW [place] % (Auto) Seg Neutrophils % PT INR D-Dimer Potassium Chloride Glucose POC Glucose 175 H 155 H 139 H Iron TIBC Lipase 07/05/18 07/05/18 07/05/18 11:08 16:23 21:49 RBC MCV MCH RDW [place] % (Auto) Seg Neutrophils % PT INR D-Dimer Potassium Chloride Glucose POC Glucose 170 H 136 H 205 H Iron TIBC Lipase 07/06/18 07/06/18 07/06/18 08:23 12:09 12:09 RBC 5.62 H MCV 73 L MCH 25 L RDW 15.7 H [place] % (Auto) Seg Neutrophils % PT INR D-Dimer Potassium 5.2 H Chloride Glucose 135 H POC Glucose 134 H Iron TIBC Lipase 07/06/18 07/06/18 12:10 16:43 RBC MCV MCH RDW [place] % (Auto) Seg Neutrophils % PT INR D-Dimer Potassium Chloride Glucose POC Glucose 107 H 179 H Iron TIBC Lipase
--- NOTE | 2018-07-07 07:19 | Hem/Onc Progress Note ---
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 #HTN. - on meds #DM - on meds # h/o DVT - 2011- was on anticoagulation - coumadin at admission d/w path reg the adrenal bx report 07/05 bronch bx 07/07 Dr Ortiz is covering me next week - pt can be seen in clinic by Nasreen or myself after discharge - Patient Problems (1) Lung mass Onset Date: ~06/26/18 Current Visit: Yes Status: Acute Subjective Date of service: 07/07/18 Principal diagnosis: lung and adrenal mass Interval history: s/p adrenal bx - 06/28. feeling ok eating no chest pain h/o leg DVT 2011 - had been on anticoagulation coumadin bronch bx - today Objective - Constitutional Vitals: Last Vital Signs Temp 98.5 F 07/07/18 04:42 Pulse 81 07/07/18 04:42 Resp 20 07/07/18 04:42 BP 114/64 07/07/18 04:42 Pulse Ox 97 07/07/18 04:42 Pain Intensity (0-10): denies any pain General appearance: no acute distress Performance status: 0-fully active - EENT Eyes: PERRL ENT: clear oral mucosa Lymph node exam: negative cervical, negative supraclavicular - Neck Neck: supple - Respiratory Respiratory effort: Positive: normal Respiratory: bilateral: CTA - Cardiovascular Heart Sounds: Present: S1 & S2 Extremities: No edema - Gastrointestinal General gastrointestinal: Present: soft, non-tender Rectal Exam: deferred - Genitourinary Male genitourinary: Present: deferred - Integumentary Integumentary: warm - Musculoskeletal Musculoskeletal: strength equal bilaterally - Neurologic Neurologic: moves all extremities - Psychiatric Psychiatric: appropriate mood/affect, cooperative - Allied health notes Allied health notes reviewed: nursing - Labs Lab Results: Laboratory Results - last 24 hr 07/06/18 07/06/18 07/06/18 08:23 12:09 12:09 WBC 7.7 RBC 5.62 H Hgb 13.9 Hct 40.8 MCV 73 L MCH 25 L MCHC 34 RDW 15.7 H Plt Count 232 Lymph % (Auto) 24.5 [place] % (Auto) 7.3 Eos % (Auto) 1.6 Baso % (Auto) 1.2 Lymph # 1.9 [place] # 0.6 Eos # 0.1 Baso # 0.1 Seg Neutrophils % 65.4 Seg Neutrophils # 5.0 Sodium 138 Potassium 5.2 H Chloride 99.2 Carbon Dioxide 30 Anion Gap 14 BUN 10 Creatinine 1.0 Estimated GFR > 60 BUN/Creatinine Ratio 10 Glucose 135 H POC Glucose 134 H Calcium 9.7 07/06/18 07/06/18 07/06/18 12:10 16:43 21:30 WBC RBC Hgb Hct MCV MCH MCHC RDW Plt Count Lymph % (Auto) [place] % (Auto) Eos % (Auto) Baso % (Auto) Lymph # [place] # Eos # Baso # Seg Neutrophils % Seg Neutrophils # Sodium Potassium Chloride Carbon Dioxide Anion Gap BUN Creatinine Estimated GFR BUN/Creatinine Ratio Glucose POC Glucose 107 H 179 H 135 H Calcium
[2018-07-07] MEDS: HumaLOG SUB-Q SCH ×4 (07:58→22:18)
[2018-07-07] MEDS ORDERED: NACL 0.9% 1000 ML 1,000 ML IV SCH (09:00)
[2018-07-07] MEDS ORDERED: WATER FOR IRRIG STERILE IR ONE (09:10)
[2018-07-07] MEDS ORDERED: NACL 0.9% 1000 ML 1,000 ML ONE (09:11)
[2018-07-07] MEDS ORDERED: ADRENALIN ONE (09:11)
[2018-07-07] MEDS ORDERED: XYLOCAINE 1% 20 mL ONE ×2 (09:11→09:34)
[2018-07-07] MEDS ORDERED: HURRICAINE ONE 20% TOPICAL SPRAY MM ×2 (09:12→09:45)
[2018-07-07] MEDS ORDERED: LIDOCAINE VISCOUS 2% ONE (09:12)
[2018-07-07] MEDS ORDERED: DILAUDID ONE (09:24)
[2018-07-07] MEDS ORDERED: VERSED ONE (09:24)
[2018-07-07] MEDS ORDERED: DIPRIVAN 10 MG/ML IV ONE (09:24)
[2018-07-07] MEDS ORDERED: LIDOCAINE VISCOUS 2% PO ONE ×2 (09:35→09:37)
--- NOTE | 2018-07-07 09:57 | Anesthesia Day of Surgery ---
Anesthesia Day of Surgery - Day of Surgery Patient Examined: Yes Patient H&P Reviewed: Yes Patient is NPO: Yes Beta Blockers: No
[2018-07-07] MEDS ORDERED: XYLOCAINE 1% 20 mL INFILTRATI ONE ×3 (10:08→10:15)
[2018-07-07] MEDS ORDERED: ADRENALIN IV ONE (10:11)
--- NOTE | 2018-07-07 10:13 | Anesthesia Consultation ---
Anesthesia Consult and Med Hx Date of service: 07/07/18 - Airway Anesthetic Teeth Evaluation: Good, Dentures ROM Head & Neck: Adequate Mental/Hyoid Distance: Adequate Mallampati Class: Class III Intubation Access Assessment: Good - Pulmonary Exam CTA: Yes - Cardiac Exam Cardiac Exam: No Murmur - Pre-Operative Health Status ASA Pre-Surgery Classification: ASA3 - Pulmonary Hx Asthma: No COPD: No Hx Pneumonia: No - Cardiovascular System Hx Hypertension: Yes Hx Coronary Artery Disease: No Hx Heart Attack/AMI: No Hx Angina: No Hx Percutaneous Transluminal Coronary Angioplasty (PTCA): No Hx Cardia Arrhythmia: No Hx Pacemaker: No Hx Internal Defibrillator: No Hx Valvular Heart Disease: No Hx Heart Murmur: No Hx Peripheral Vascular Disease: No - Endocrine Hx End Stage Renal Disease: No Hx Insulin Dependent Diabetes: Yes
--- NOTE | 2018-07-07 10:21 | Progress Note ---
Assessment and Plan Assessment and plan: Lung mass Patient presents with hilar mass in the lung. Could not obtain biopsy today secondary to location of the mass amenable for access. Pulmonary to perform bronchoscopy/biopsy this morning. Diabetes mellitus type II At present patient has fair control of diabetes. Would not adjust medications DVT (deep venous thrombosis) Patient with acute DVT Coumadin currently on hold until evaluated by pulmonary for possible procedure Disposition Anticipate discharge in a.m. with follow-up of biopsy results as an outpatient. History Interval history: No new issues overnight. Hospitalist Physical - Constitutional Vitals: Temp Pulse Resp BP Pulse Ox 98.4 F 90 16 132/87 98 07/07/18 09:29 07/07/18 09:29 07/07/18 09:29 07/07/18 09:29 07/07/18 09:29 General appearance: Present: no acute distress - EENT Eyes: Present: PERRL, EOM intact ENT: hearing intact, clear oral mucosa, dentition normal - Neck Neck: Present: supple, normal ROM - Respiratory Respiratory effort: normal Respiratory: bilateral: CTA - Cardiovascular Rhythm: regular Heart Sounds: Present: S1 & S2. Absent: gallop, rub - Extremities Extremities: no ischemia, No edema, Full ROM - Abdominal General gastrointestinal: soft, non-tender, non-distended, normal bowel sounds - Integumentary Integumentary: Present: clear, warm, dry - Neurologic Neurologic: CNII-XII intact, moves all extremities Results - Labs CBC & Chem 7: 07/06/18 12:09 07/06/18 12:09 Labs: Laboratory Last Values WBC 7.7 K/mm3 (4.5-11.0) 07/06/18 12:09 RBC 5.62 M/mm3 (3.65-5.03) H 07/06/18 12:09 Hgb 13.9 gm/dl (11.8-15.2) 07/06/18 12:09 Hct 40.8 % (35.5-45.6) 07/06/18 12:09 MCV 73 fl (84-94) L 07/06/18 12:09 MCH 25 pg (28-32) L 07/06/18 12:09 MCHC 34 % (32-34) 07/06/18 12:09 RDW 15.7 % (13.2-15.2) H 07/06/18 12:09 Plt Count 232 K/mm3 (140-440) 07/06/18 12:09 Lymph % (Auto) 24.5 % (13.4-35.0) 07/06/18 12:09 [place] % (Auto) 7.3 % (0.0-7.3) 07/06/18 12:09 Eos % (Auto) 1.6 % (0.0-4.3) 07/06/18 12:09 Baso % (Auto) 1.2 % (0.0-1.8) 07/06/18 12:09 Lymph # 1.9 K/mm3 (1.2-5.4) 07/06/18 12:09 [place] # 0.6 K/mm3 (0.0-0.8) 07/06/18 12:09 Eos # 0.1 K/mm3 (0.0-0.4) 07/06/18 12:09 Baso # 0.1 K/mm3 (0.0-0.1) 07/06/18 12:09 Seg Neutrophils % 65.4 % (40.0-70.0) 07/06/18 12:09 Seg Neutrophils # 5.0 K/mm3 (1.8-7.7) 07/06/18 12:09 PT 16.6 Sec. (12.2-14.9) H 06/28/18 10:30 INR 1.27 (0.87-1.13) H 06/28/18 10:30 APTT 25.9 Sec. (24.2-36.6) 06/27/18 10:04 D-Dimer 370.07 ng/mlDDU (0-234) H 06/25/18 22:35 Sodium 138 mmol/L (137-145) 07/06/18 12:09 Potassium 5.2 mmol/L (3.6-5.0) H 07/06/18 12:09 Chloride 99.2 mmol/L (98-107) 07/06/18 12:09 Carbon Dioxide 30 mmol/L (22-30) 07/06/18 12:09 Anion Gap 14 mmol/L 07/06/18 12:09 BUN 10 mg/dL (9-20) 07/06/18 12:09 Creatinine 1.0 mg/dL (0.8-1.5) 07/06/18 12:09 Estimated GFR > 60 ml/min 07/06/18 12:09 BUN/Creatinine Ratio 10 % 07/06/18 12:09 Glucose 135 mg/dL (75-100) H 07/06/18 12:09 POC Glucose 143 (70-105) H 07/07/18 07:29 Calcium 9.7 mg/dL (8.4-10.2) 07/06/18 12:09 Iron 37 ug/dL (49-181) L 06/30/18 05:10 TIBC 235 mcg/dL (250-450) L 06/30/18 05:10 Ferritin 307.5 ng/mL (13.0-400.0) 06/30/18 05:10 Total Bilirubin 0.40 mg/dL (0.1-1.2) 06/25/18 22:35 AST 15 units/L (5-40) 06/25/18 22:35 ALT 15 units/L (7-56) 06/25/18 22:35 Alkaline Phosphatase 81 units/L (35-129) 06/25/18 22:35 Total Protein 7.4 g/dL (6.3-8.2) 06/25/18 22:35 Albumin 4.5 g/dL (3.9-5) 06/25/18 22:35 Albumin/Globulin Ratio 1.6 % 06/25/18 22:35 Lipase 150 units/L (13-60) H 06/25/18 22:35 Vitamin B12 567.6 pg/mL (211-911) 06/30/18 05:10 Folate 11.67 ng/mL (7.3-26.0) 06/30/18 05:10 Urine Color Yellow (Yellow) 06/25/18 19:45 Urine Turbidity Clear (Clear) 06/25/18 19:45 Urine pH 5.0 (5.0-7.0) 06/25/18 19:45 Ur Specific [place] 1.019 (1.003-1.030) 06/25/18 19:45 Urine Protein <15 mg/dl mg/dL (Negative) 06/25/18 19:45 Urine Glucose (UA) Neg mg/dL (Negative) 06/25/18 19:45 Urine Ketones Neg mg/dL (Negative) 06/25/18 19:45 Urine Blood Mod (Negative) 06/25/18 19:45 Urine Nitrite Neg (Negative) 06/25/18 19:45 Urine Bilirubin Neg (Negative) 06/25/18 19:45 Urine Urobilinogen < 2.0 mg/dL (<2.0) 06/25/18 19:45 Ur Leukocyte Esterase Neg (Negative) 06/25/18 19:45 Urine WBC (Auto) 1.0 /HPF (0.0-6.0) 06/25/18 19:45 Urine RBC (Auto) 2.0 /HPF (0.0-6.0) 06/25/18 19:45 U Epithel Cells (Auto) < 1.0 /HPF (0-13.0) 06/25/18 19:45
--- NOTE | 2018-07-07 10:40 | Procedure Note ---
Date of procedure: 07/07/18 Pre-op diagnosis: Right Lung Mass Post-op diagnosis: same Procedure: PULMONARY PROCEDURE NOTE (Full note dictated # [id number]) Please see dictated notes for full details
--- NOTE | 2018-07-07 11:14 | XRay Report ---
AP CHEST: HISTORY: Pneumothorax surveillance, post bronchoscopy Right hilar mass or adenopathy is not significantly changed since 06/26/18. The left lung is clear. No evidence for pneumothorax. Heart size is normal. IMPRESSION: No evidence for pneumothorax.
[2018-07-07] MEDS: SODIUM CHLORIDE FLUSH SYRINGE 10 ML IV SCH (11:47)
--- NOTE | 2018-07-07 15:56 | Operative Report ---
PULMONARY PROCEDURE NOTE PROCEDURE: Fiberoptic bronchoscopy with endobronchial biopsies. INDICATION: Right upper lobe lung mass/atelectasis. CONSENT: Informed and witnessed. COMPLICATIONS: No immediate procedural complications. DESCRIPTION OF PROCEDURE: Procedure detail as follows: After informed and witnessed consent as well as premedication that was provided by the anesthesiologist, the fiberoptic bronchoscope was passed through the right nostril into the nasopharynx and advanced into the hypopharyngeal regions. Vocal cords were located. Topical lidocaine was applied on the vocal cords. Fiberoptic bronchoscope was advanced into the trachea. There were no obvious endotracheal lesions. There was some evidence of distortion, particularly at the level of the nba where it was difficult to get into the right upper lobe opening due to upward displacement. Topical lidocaine was again applied at the nba. The right upper lobe was approached and right at the entrance to the right upper lobe, I could see an endobronchial tumor. It looked fleshy and looked like it had a chance to bleed. A 3 mL of topical 1:10,000 epinephrine was applied. A fiberoptic bronchoscope was withdrawn to the nba and the left endobronchial tree was surveyed. The left upper lobe, lingular divisions and what looked like an accessory left upper lobe branch were seen. There were no gross endobronchial lesions. The fiberoptic bronchoscope was advanced into the basilar segments. The basilar segments were inspected as best as I could. I did not see any obvious pathology or endobronchial lesion in the left endobronchial tree. Fiberoptic bronchoscope was then brought back to the nba. I went ahead and inspected right middle lobe, the right lower lobe superior segments and the basilar segments. No gross endobronchial lesions were seen. Fiberoptic bronchoscope was then withdrawn back to the right upper lobe opening under direct visualization, a couple of endobronchial biopsies were taken. There was some bleeding as expected. Endobronchial washings were taken and then endobronchial brushings were done. After the procedure, 3 mL of topical epinephrine was again applied to hopefully provide hemostasis. Fiberoptic bronchoscope was then withdrawn again through bilaterally mobile vocal cords. The patient tolerated the procedure well. No obvious procedural complications. RECOMMENDATIONS: 1. Follow up with pathology. 2. Follow up with cytology of both the bronchial washings as well as the bronchial brushings. 3. Stat post-procedure chest x-ray has been ordered to ensure no obvious pneumothorax or other pathology post-brushing. JOB# [id number] STEPHANIE/DIANNE
--- NOTE | 2018-07-07 21:49 | Progress Note ---
Assessment and Plan Patient alert, awake. Resting on room air.O2 saturation 100%.No acute respiratory distress.Patient undergone bronchoscopy today.Bronchoscopy specimen results pending - Patient Problems (1) Lung mass Onset Date: ~06/26/18 Current Visit: Yes Status: Acute Plan to address problem: Patient has bronchoscopy today. Bronchoscopy specimen results pending. (2) Diabetes Current Visit: Yes Status: Acute Plan to address problem: Management as per primary care. Subjective Date of service: 07/07/18 Principal diagnosis: feeling fine - due bronch bx Interval history: Patient alert, awake. Resting on room air.O2 saturation 100%.No acute respiratory distress.Patient undergone bronchoscopy today.Bronchoscopy specimen results pending. Objective Vital Signs - 12hr 07/07/18 07/07/18 07/07/18 10:24 10:42 10:59 Temperature 97.8 F Pulse Rate 88 82 78 Respiratory 17 17 17 Rate Blood Pressure 116/64 111/69 119/79 O2 Sat by Pulse 99 99 96 Oximetry 07/07/18 07/07/18 11:40 13:07 Temperature 98.3 F 98.0 F Pulse Rate 74 74 Respiratory 18 20 Rate Blood Pressure 131/78 132/78 O2 Sat by Pulse 97 100 Oximetry Constitutional: no acute distress, alert Eyes: non-icteric ENT: oropharynx moist Neck: supple, no lymphadenopathy Ascultation: Left: diminished breath sounds, rhonchi Cardiovascular: regular rate and rhythm Gastrointestinal: normoactive bowel sounds, soft, non-tender Integumentary: normal Extremities: no cyanosis, no edema Neurologic: other (Sleeping at this time.) Psychiatric: other (Sleeping at this time.) CBC and BMP: 07/06/18 12:09 07/06/18 12:09 ABG, PT/INR, D-dimer: PT/INR, D-dimer PT 16.6 Sec. (12.2-14.9) H 06/28/18 10:30 INR 1.27 (0.87-1.13) H 06/28/18 10:30 D-Dimer 370.07 ng/mlDDU (0-234) H 06/25/18 22:35 Abnormal lab findings: Abnormal Labs 06/25/18 06/25/18 06/25/18 19:23 22:35 22:35 RBC 5.63 H MCV 74 L MCH 25 L RDW 16.0 H Rice % (Auto) 8.3 H Seg Neutrophils % 70.3 H PT INR D-Dimer Potassium Chloride 97.9 L Glucose 149 H POC Glucose 113 H Iron TIBC Lipase 150 H 06/25/18 06/26/18 06/26/18 22:35 04:10 04:10 RBC 5.25 H MCV 74 L MCH 25 L RDW 15.9 H Rice % (Auto) 8.5 H Seg Neutrophils % PT INR D-Dimer 370.07 H Potassium Chloride Glucose 143 H POC Glucose Iron TIBC Lipase 06/26/18 06/26/18 06/26/18 11:08 16:40 20:58 RBC MCV MCH RDW Rice % (Auto) Seg Neutrophils % PT INR D-Dimer Potassium Chloride Glucose POC Glucose 159 H 188 H 120 H Iron TIBC Lipase 06/27/18 06/27/18 06/27/18 07:55 10:04 11:57 RBC MCV MCH RDW Rice % (Auto) Seg Neutrophils % PT 20.2 H INR 1.62 H D-Dimer Potassium Chloride Glucose POC Glucose 120 H 114 H Iron TIBC Lipase 06/27/18 06/28/18 06/28/18 21:12 10:30 16:18 RBC MCV MCH RDW Rice % (Auto) Seg Neutrophils % PT 16.6 H INR 1.27 H D-Dimer Potassium Chloride Glucose POC Glucose 175 H 130 H Iron TIBC Lipase 06/28/18 06/29/18 06/29/18 22:22 05:08 05:08 RBC 5.10 H MCV 73 L MCH 25 L RDW 15.6 H Rice % (Auto) Seg Neutrophils % PT INR D-Dimer Potassium Chloride Glucose 108 H POC Glucose 114 H Iron TIBC Lipase 06/29/18 06/29/18 06/29/18 08:10 12:40 16:19 RBC MCV MCH RDW Rice % (Auto) Seg Neutrophils % PT INR D-Dimer Potassium Chloride Glucose POC Glucose 117 H 155 H 123 H Iron TIBC Lipase 06/29/18 06/30/18 06/30/18 22:03 05:10 08:05 RBC MCV MCH RDW Rice % (Auto) Seg Neutrophils % PT INR D-Dimer Potassium Chloride Glucose POC Glucose 109 H 116 H Iron 37 L TIBC 235 L Lipase 06/30/18 06/30/18 06/30/18 12:34 18:29 20:55 RBC MCV MCH RDW Rice % (Auto) Seg Neutrophils % PT INR D-Dimer Potassium Chloride Glucose POC Glucose 127 H 263 H 231 H Iron TIBC Lipase 07/01/18 07/01/18 07/01/18 07:46 11:58 16:35 RBC MCV MCH RDW Rice % (Auto) Seg Neutrophils % PT INR D-Dimer Potassium Chloride Glucose POC Glucose 132 H 129 H 132 H Iron TIBC Lipase 07/01/18 07/02/18 07/02/18 21:01 07:34 11:17 RBC MCV MCH RDW Rice % (Auto) Seg Neutrophils % PT INR D-Dimer Potassium Chloride Glucose POC Glucose 175 H 126 H 167 H Iron TIBC Lipase 07/02/18 07/02/18 07/03/18 16:16 21:05 05:56 RBC 5.32 H MCV 73 L MCH 24 L RDW 15.6 H Rice % (Auto) Seg Neutrophils % PT INR D-Dimer Potassium Chloride Glucose POC Glucose 119 H 140 H Iron TIBC Lipase 07/03/18 07/03/18 07/03/18 05:56 11:20 16:21 RBC MCV MCH RDW Rice % (Auto) Seg Neutrophils % PT INR D-Dimer Potassium Chloride Glucose 127 H POC Glucose 160 H 168 H Iron TIBC Lipase 07/03/18 07/04/18 07/04/18 21:42 07:44 12:06 RBC MCV MCH RDW Rice % (Auto) Seg Neutrophils % PT INR D-Dimer Potassium Chloride Glucose POC Glucose 168 H 145 H 196 H Iron TIBC Lipase 07/04/18 07/04/18 07/05/18 17:25 21:20 08:16 RBC MCV MCH RDW Rice % (Auto) Seg Neutrophils % PT INR D-Dimer Potassium Chloride Glucose POC Glucose 175 H 155 H 139 H Iron TIBC Lipase 07/05/18 07/05/18 07/05/18 11:08 16:23 21:49 RBC MCV MCH RDW Rice % (Auto) Seg Neutrophils % PT INR D-Dimer Potassium Chloride Glucose POC Glucose 170 H 136 H 205 H Iron TIBC Lipase 07/06/18 07/06/18 07/06/18 08:23 12:09 12:09 RBC 5.62 H MCV 73 L MCH 25 L RDW 15.7 H Rice % (Auto) Seg Neutrophils % PT INR D-Dimer Potassium 5.2 H Chloride Glucose 135 H POC Glucose 134 H Iron TIBC Lipase 07/06/18 07/06/18 07/06/18 12:10 16:43 21:30 RBC MCV MCH RDW Rice % (Auto) Seg Neutrophils % PT INR D-Dimer Potassium Chloride Glucose POC Glucose 107 H 179 H 135 H Iron TIBC Lipase 07/07/18 07/07/18 07:29 16:28 RBC MCV MCH RDW Rice % (Auto) Seg Neutrophils % PT INR D-Dimer Potassium Chloride Glucose POC Glucose 143 H 162 H Iron TIBC Lipase Chest x-ray: report reviewed (No pneumothorax post bronchoscopy.Right hilar mass.), image reviewed
[2018-07-08] MEDS: HumaLOG SUB-Q SCH ×2 (09:00→12:00)
--- NOTE | 2018-07-08 09:20 | Discharge Summary ---
Providers - Providers Date of Admission: 06/26/18 02:55 Date of discharge: 07/08/18 Attending physician: GLORY CARVER 06/26/18 02:55 Consult to Physician [CONS] Routine Comment: Consulting Provider: VEGA CASILLAS Physician Instructions: Reason For Exam: lung mass 06/26/18 08:50 Consult to Interventional Radiology [CONS] Routine Consulting Provider: SHAGUFTA CRESPO Reason For Exam: rt supra hilar mass CT guided biopsy Place consult to:: radiology/DR. CRESPO Notified:: DR. CRESPO Phone number called:: IN HOUSE Was contact made?: Yes If yes, spoke with:: DR. CRESPO Time called:: 09:49 Comment:: RAE AWARE 07/02/18 18:03 Consult to Physician [CONS] Routine Comment: Discussed with Dr. Crespo Consulting Provider: SHAGUFTA CRESPO Physician Instructions: Reason For Exam: CT guided biopsy right hilar mass 07/04/18 12:34 Consult to Physician [CONS] Routine Comment: Consulting Provider: HUI KIMBALL Physician Instructions: Reason For Exam: lung mass Primary care physician: WELDER [facility]IFT Hospitalization Reason for admission: abd pain Condition: Fair Hospital course: 62-year-old man history of diabetes, unprovoked DVT several years ago, life daniel non smoker, admitted through the ER to emergency room with complaints of abdominal pain located in the left lower quadrant . He admitted to nausea and vomiting, shortness of breath,and significant weight loss. He was found to have lung mass with extensive adenopathy. Also noted to have adrenal mass s/p non diagnostic biopsy. The patient was seen by oncology and IR consultation. Pulmonary was later consulted for the lung mass and diagnostic bronchoscopy. The patient had the bronchoscopy completed without any issues. The feeling is that the patient has a right hilar/lung mass with bilateral adrenal masses which are most likely metastatic lung disease. Differential includes lymphoma. Patient's anticoagulation for the VTE was on hold. Anticoagulation will be resumed and patient is to follow-up with primary care physician and oncology for PT/INR checks and also follow-up with pulmonary/oncology for pathology results on bronchoscopy. Dedicated discharge time 32 minutes. Disposition: - TO HOME OR SELFCARE Time spent for discharge: 32 - Discharge Diagnoses (1) Adrenal mass Status: Acute (2) HTN (hypertension) Status: Acute (3) Diabetes mellitus Status: Acute (4) Diabetes Status: Acute (5) Lung mass Status: Acute Core Measure Documentation - Palliative Care Palliative Care/ Comfort Measures: Not Applicable - Core Measures Any of the following diagnoses?: none Exam - Constitutional Vitals: Temp Pulse Resp BP Pulse Ox 97.7 F 87 20 143/81 97 07/08/18 05:16 07/08/18 05:16 07/08/18 05:16 07/08/18 05:16 07/08/18 05:16 General appearance: Present: no acute distress, well-nourished - EENT Eyes: Present: PERRL ENT: hearing intact, clear oral mucosa - Neck Neck: Present: supple, normal ROM - Respiratory Respiratory effort: normal Respiratory: bilateral: CTA - Cardiovascular Heart Sounds: Present: S1 & S2. Absent: rub, click - Extremities Extremities: pulses symmetrical, No edema Peripheral Pulses: within normal limits - Abdominal General gastrointestinal: Present: soft, non-tender, non-distended, normal bowel sounds Male genitourinary: Present: normal - Integumentary Integumentary: Present: clear, warm, dry - Musculoskeletal Musculoskeletal: gait normal, strength equal bilaterally - Psychiatric Psychiatric: appropriate mood/affect, intact judgment & insight - Neurologic Neurologic: CNII-XII intact, moves all extremities Plan Activity: no restrictions Weight Bearing Status: Weight Bear as Tolerated Diet: diabetic Follow up with: PRIMARY CARE, [Primary Care Provider] - 3-5 Days NHI AMADOR MD [Staff Physician] - 7 Days CARMEN LOVE MD [Staff Physician] - 7 Days VEGA CASILLAS MD [Staff Physician] - 7 Days Prescriptions: Lisinopril [Prinivil] 10 mg PO DAILY #30 tablet metFORMIN [Glucophage] 1,000 mg PO BID #60 tablet oxyCODONE /ACETAMINOPHEN [Percocet 5/325 mg] 1 tab PO Q6H PRN #30 tablet PRN Reason: Pain, Moderate (4-6) Simvastatin 40 mg PO QHS #30 tablet Warfarin Sodium [Jantoven] 10 mg PO 4XW #30 tablet Warfarin Sodium [Jantoven] 7.5 mg PO 3XW #30 tablet
[2018-07-08 12:23] VITALS: BP 141/78
== END 2018-07-08 15:15 | disposition home or self-care (01) | DRG 167 ==
LOC: ED 18:12 → 3A 06-26 02:55
PROVIDERS: ADMIT Internal Medicine; ATTEND Hospitalist
PROC: 3E0234Z Introduction of Serum, Toxoid and Vaccine into Muscle, Percutaneous Approach (ICD-10-PCS; 2018-06-27)
PROC: 0GB23ZX Excision of Left Adrenal Gland, Percutaneous Approach, Diagnostic (ICD-10-PCS; 2018-06-28)
PROC: 0BBC8ZX Excision of Right Upper Lung Lobe, Via Natural or Artificial Opening Endoscopic, Diagnostic (ICD-10-PCS; principal; 2018-07-07)
PROC: 0B9C8ZZ Drainage of Right Upper Lung Lobe, Via Natural or Artificial Opening Endoscopic (ICD-10-PCS; 2018-07-07)
PROC: 0BDC8ZX Extraction of Right Upper Lung Lobe, Via Natural or Artificial Opening Endoscopic, Diagnostic (ICD-10-PCS; 2018-07-07)
DX: C34.11 Malignant neoplasm of upper lobe, right bronchus or lung (principal); C79.72 Secondary malignant neoplasm of left adrenal gland; I10 Essential (primary) hypertension; E11.8 Type 2 diabetes mellitus with unspecified complications; Z86.718 Personal history of other venous thrombosis and embolism; R59.9 Enlarged lymph nodes, unspecified; Z82.49 Family history of ischemic heart disease and other diseases of the circulatory system; Z79.899 Other long term (current) drug therapy; E78.5 Hyperlipidemia, unspecified; E78.00 Pure hypercholesterolemia, unspecified; Z23 Encounter for immunization
CPT/HCPCS: 36415; 49180; 71045; 71275; 74176; 77012; 80048; 80053; 81001; 82607; 82728; 82747; 82962; 83550; 83690; 85014; 85018; 85025; 85027; 85379; 85610; 85730; 88104; 88112; 88173; 88305; 88307; 88333; 88334; 88341; 88342; 90732; A4649; J0171; J1170; J1650; J1815; J2250; J2704; J3010; J7030; Q9967

== ENCOUNTER 2018-07-11 04:56 | Emergency (ER) | payer SELFPAY ==
[2018-07-11 06:28] VITALS: BP 137/83
[2018-07-11] MEDS ORDERED: MOTRIN PO ONE (06:29)
--- NOTE | 2018-07-11 06:59 | XRay Report ---
FINAL REPORT EXAM: XR FOOT 3+V LT HISTORY: left foot swelling and pain TECHNIQUE: Three views of the left foot were submitted. FINDINGS: There is a mild hallux valgus deformity of the 1st metatarsophalangeal joint. There is no evidence of fracture or dislocation. There is spurring along the posterior and plantar margin of the calcaneus. Soft tissues otherwise are unremarkable. IMPRESSION: Mild hallux valgus deformity. No evidence of fracture dislocation. Heel spurs.
--- NOTE | 2018-07-11 07:23 | Emergency Department Report ---
ED Lower Extremity HPI - General Chief Complaint: Extremity Injury, Lower Stated Complaint: LEFT FEET TOE PAIN,SWEELING Source: patient Mode of arrival: Ambulatory Limitations: No Limitations - History of Present Illness Initial Comments: This is a 62-year-old -[place] male who presents with left great toe pain that started last night. Past medical history of diabetes Type II, hypertension, and hyperlipidemia. Patient states symptoms started last night with swelling and severe pain of left lateral great toe. Patient states very difficult to tolerate touch or wearing shoes. Patient reports pain is 8 out of 10 on pain scale, sharp, and constant. Patient stated it is warm to touch and erythema. He is currently not taking anything for symptom relief. He denies recent injury or numbness or tingling. MD Complaint: foot injury (left great toe) -: During the night Injury: Toes: Left (great toe) Type of Injury: unknown Place: home Severity: moderate Severity scale (0 -10): 8 Improves With: nothing Worsens With: weight bearing, movement, palpation Associated Symptoms: swelling, able to partially bear weight, ambulatory. denies: snap/pop sensation, numbness, tingling, unable to bear weight - Related Data Previous Rx's Medication Instructions Recorded Last Taken Type Lisinopril [Prinivil] 10 mg PO DAILY #30 tablet 07/08/18 Unknown Rx Simvastatin 40 mg PO QHS #30 tablet 07/08/18 Unknown Rx Warfarin Sodium [Jantoven] 7.5 mg PO 3XW #30 tablet 07/08/18 Unknown Rx Warfarin Sodium [Jantoven] 10 mg PO 4XW #30 tablet 07/08/18 Unknown Rx cefUROXime [Ceftin] 500 mg PO Q12H #14 tablet 07/08/18 Unknown Rx guaiFENesin/CODEINE [Robitussin AC] 5 ml PO Q6HR #1 oral.liqd 07/08/18 Unknown Rx metFORMIN [Glucophage] 1,000 mg PO BID #60 tablet 07/08/18 Unknown Rx oxyCODONE /ACETAMINOPHEN [Percocet 1 tab PO Q6H PRN #30 tablet 07/08/18 Unknown Rx 5/325 mg] Indomethacin 50 mg PO Q8H #15 capsule 07/11/18 Unknown Rx Prednisone [predniSONE 10 mg 10 mg PO .TAPER #1 tab.ds.pk 07/11/18 Unknown Rx (6-Day Pack, 21 Tabs)] Allergies Allergy/AdvReac Type Severity Reaction Status Date / Time No Known Allergies Allergy Verified 06/23/18 10:10 ED Review of Systems ROS: Stated complaint: LEFT FEET TOE PAIN,SWEELING Other details as noted in HPI Constitutional: denies: chills, fever Respiratory: denies: cough, shortness of breath, wheezing Cardiovascular: denies: chest pain, palpitations Gastrointestinal: denies: abdominal pain, nausea, diarrhea Musculoskeletal: arthralgia (left great toe swelling and pain). denies: back pain, joint swelling Skin: denies: rash, lesions Neurological: denies: headache, weakness, paresthesias Psychiatric: denies: anxiety, depression ED Past Medical Hx - Past Medical History Hx Hypertension: Yes Hx Heart Attack/AMI: No Hx Congestive Heart Failure: No Hx Diabetes: Yes Hx Asthma: No Hx COPD: No Additional medical history: high cholesterol - Surgical History Hx Pacemaker: No Hx Internal Defibrillator: No - Social History Smoking Status: Never Smoker Substance Use Type: None - Medications Home Medications: Home Medications Medication Instructions Recorded Confirmed Last Taken Type Lisinopril [Prinivil] 10 mg PO DAILY #30 tablet 07/08/18 Unknown Rx Simvastatin 40 mg PO QHS #30 tablet 07/08/18 Unknown Rx Warfarin Sodium [Jantoven] 7.5 mg PO 3XW #30 tablet 07/08/18 Unknown Rx Warfarin Sodium [Jantoven] 10 mg PO 4XW #30 tablet 07/08/18 Unknown Rx cefUROXime [Ceftin] 500 mg PO Q12H #14 tablet 07/08/18 Unknown Rx guaiFENesin/CODEINE [Robitussin AC] 5 ml PO Q6HR #1 oral.liqd 07/08/18 Unknown Rx metFORMIN [Glucophage] 1,000 mg PO BID #60 tablet 07/08/18 Unknown Rx oxyCODONE /ACETAMINOPHEN [Percocet 1 tab PO Q6H PRN #30 tablet 07/08/18 Unknown Rx 5/325 mg] Indomethacin 50 mg PO Q8H #15 capsule 07/11/18 Unknown Rx Prednisone [predniSONE 10 mg 10 mg PO .TAPER #1 tab.ds.pk 07/11/18 Unknown Rx (6-Day Pack, 21 Tabs)] ED Physical Exam - General Limitations: No Limitations General appearance: alert, in no apparent distress - Respiratory Respiratory exam: Present: normal lung sounds bilaterally. Absent: respiratory distress - Cardiovascular Cardiovascular Exam: Present: regular rate, normal rhythm. Absent: systolic murmur, diastolic murmur, rubs, gallop - GI/Abdominal GI/Abdominal exam: Present: soft, normal bowel sounds - Expanded Lower Extremity Exam Left Hip exam: Present: normal inspection, full ROM Upper Leg exam: Present: normal inspection, full ROM Knee exam: Present: normal inspection, full ROM Lower Leg exam: Present: normal inspection, full ROM Ankle exam: Present: normal inspection, full ROM Foot/Toe exam: Present: tenderness (swelling and tenderness over first lateral MTP joint), swelling, erythema (lateral first MTP). Absent: full ROM (limited 2 /2 pain), abrasion, dislocation, amputation, puncture wound, foreign body, calcaneal tenderness, tenderness at base of 5th metatarsal, nail avulsion, subungual hematoma Neuro vascular tendon exam: Present: no vascular compromise Gait: Positive: observed and limited by pain - Neurological Exam Neurological exam: Present: alert, oriented X3 - Psychiatric Psychiatric exam: Present: normal affect, normal mood ED Course Vital Signs 07/11/18 06:22 Temperature 99.8 F H Pulse Rate 98 H Respiratory 18 Rate Blood Pressure 137/83 O2 Sat by Pulse 99 Oximetry ED Lower Extremity MDM - Radiology Data Radiology results: report reviewed, image reviewed FINAL REPORT EXAM: XR FOOT 3+V LT HISTORY: left foot swelling and pain TECHNIQUE: Three views of the left foot were submitted. FINDINGS: There is a mild hallux valgus deformity of the 1st metatarsophalangeal joint. There is no evidence of fracture or dislocation. There is spurring along the posterior and plantar margin of the calcaneus. Soft tissues otherwise are unremarkable. IMPRESSION: Mild hallux valgus deformity. No evidence of fracture dislocation. Heel spurs. - Medical Decision Making This patient is stable and examined by me in the emergency room. Obtained x-ray of left foot. Radiograph dictated by radiologist report reviewed by myself with no acute findings. No acute signs of distress noted. Physical findings except full of gout flare. Given prednisone 50 mg po, ibuprofen 800 mg po once in ER for gout. Discussed plan to start prednisone taper and indomethacin 50 mg po tid with patient. Educated patient and spouse on low purine diet and given handout. Patient agrees to ED plan of care. Discharged home and follow up with PCP in 3 days. Critical care attestation.: If time is entered above; I have spent that time in minutes in the direct care of this critically ill patient, excluding procedure time. ED Disposition Clinical Impression: Gout attack Qualifiers: Gout site: toe Gout etiology: idiopathic Laterality: left Qualified Code(s): M10.072 - Idiopathic gout, left ankle and foot Disposition: TO HOME OR SELFCARE Is pt being admited?: No Does the pt Need Aspirin: No Condition: Stable Instructions: Low Purine Diet (ED), Acute Gouty Arthritis (ED) Additional Instructions: Avoid foods that have a high purine content such as alcohol, organ meats, and seafood can cause higher risk of elevated uric acid and gout. Reduce intake of alcohol, especially beer, lowers the risk of gout. Reduce the intake of vegetables high in purines such as asparagus, spinach, and mushrooms. Dairy products reduce the risk of gout. Follow up with primary care provider in 2-3 days. Prescriptions: Indomethacin 50 mg PO Q8H #15 capsule Prednisone [predniSONE 10 mg (6-Day Pack, 21 Tabs)] 10 mg PO .TAPER #1 tab.ds.pk Referrals: [facility] [Outside] - 3-5 Days [facility] [Outside] - 3-5 Days [facility] [Outside] - 3-5 Days Time of Disposition: 07:36 Print Language: IRISH
[2018-07-11] MEDS ORDERED: DELTASONE PO ONE ×2 (07:32→07:33)
== END 2018-07-11 08:00 | disposition home or self-care (01) ==
LOC: ED 04:56
DX: M10.072 Idiopathic gout, left ankle and foot (principal); I10 Essential (primary) hypertension; E11.9 Type 2 diabetes mellitus without complications; E78.00 Pure hypercholesterolemia, unspecified
CPT/HCPCS: 73630; 99283; J7512

== ENCOUNTER 2018-11-16 13:36 | Outpatient (CLI) | payer MEDICAID | END 2018-11-16 13:37 | disposition home or self-care (01) | LOC: LABHHL 13:36 | PROVIDERS: ATTEND Internal Medicine Hematology & Oncology | DX: C34.11 Malignant neoplasm of upper lobe, right bronchus or lung (principal); E11.9 Type 2 diabetes mellitus without complications; I10 Essential (primary) hypertension; E78.5 Hyperlipidemia, unspecified | CPT/HCPCS: 36415; 81210; 81235 ==